=== PATIENT | female | born 1925 | race Caucasian/White ===

== ENCOUNTER 2016-05-19 06:42 | Inpatient (IN) | payer MEDICARE ==
[~2016-05-19 06:42] MED LIST: Acetaminophen SUPP* 120 MG SUPP ONE; Acetaminophen SUPP* 650 MG SUPP ONE
[2016-05-19] MEDS: NS 0.9% 1000 ML* 3,000 ML IV ONE ×2 (06:42→08:25)
[2016-05-19] MEDS ORDERED: NS 0.9% 1000 ML* 1,000 ML IV ONE (06:52)
[2016-05-19] MEDS ORDERED: Ondansetron INJ* 2 MG/ML VIAL IV ONE (06:57)
[2016-05-19] MEDS ORDERED: Levofloxacin 750 MG IVPREMIX(* 750 MG/150 ML BAG IVPB ONE (06:57)
[2016-05-19] MEDS ORDERED: Pantoprazole IV* 80 MG in NS 0.9% 250 ML* 250 ML IVPB ONE (06:57)
--- NOTE | 2016-05-19 07:06 | ED ---
Caden Casas Adam, scribed for Jett Juarez on 05/19/16 at 0654 . Complex/Multi-Sys Presentation - HPI Summary HPI Summary: Pt is an 89 year old female BIBA from [facility] with unresponsiveness, vomiting, and fever. Pt is unable to provide hx because she is unresponsive; hx obtained from EMS. Pt was found to be febrile by nursing staff at 05:55 this morning and she was unresponsive. EMS report a temperature of 104 F en route to ED, as well as coffee grounds emesis. They report BP as 81/ 57. Pt is DNR/DNI. PMHx includes thyroid disease, CHF, HTN, TIA, arthritis, and osteoporosis. - History Of Current Complaint Hx Obtained From: EMS Hx From Patient Unobtainable Due To: Other - Level 5 Caveat due to unresponsive patient Onset/Duration: Gradual Onset, Lasting Minutes, Lasting Hours, Still Present Timing: Constant Severity Currently: Moderate Severity Initially: Moderate Aggravating Factor(s): Nothing Alleviating Factor(s): Nothing Associated Signs And Symptoms: Positive: Decreased Responsiveness, Fever, Other - Coffee grounds emesis - Allergies/Home Medications Allergies/Adverse Reactions: Allergies Allergy/AdvReac Type Severity Reaction Status Date / Time Erythromycin Allergy Unknown Hives Verified 08/07/15 11:00 Penicillins Allergy Unknown Hives Verified 08/07/15 11:00 Sulfa Antibiotics Allergy Unknown Hives Verified 08/07/15 11:00 PMH/Surg Hx/FS Hx/Imm Hx Endocrine/Hematology History: Reports: Hx Thyroid Disease Denies: Hx Diabetes Cardiovascular History: Reports: Hx Congestive Heart Failure, Hx Hypertension Denies: Hx Pacemaker/ICD Comment Only: Other Cardiovascular Problems/Disorders - afib Respiratory History: Reports: Other Respiratory Problems/Disorders - ALLERGIES Denies: Hx Asthma, Hx Chronic Obstructive Pulmonary Disease (COPD) GI History: Denies: Hx Ulcer History: Reports: Other Problems/Disorders - FREQ UTI PER HX Denies: Hx Dialysis, Hx Renal Disease Musculoskeletal History: Reports: Hx Arthritis, Hx Back Problems, Hx Osteoporosis Sensory History: Reports: Hx Contacts or Glasses, Hx Hearing Problem Denies: Hx Hearing Aid Opthamlomology History: Reports: Hx Contacts or Glasses Neurological History: Reports: Hx Transient Ischemic Attacks (TIA) Denies: Hx Dementia, Hx Seizures Psychiatric History: Reports: Hx Anxiety Denies: Hx Panic Disorder - Surgical History Surgery Procedure, Year, and Place: TONSILECTOMY. Rt CARPAL TUNNEL. CATARACTS Infectious Disease History: Denies: Hx Hepatitis, Hx Human Immunodeficiency Virus (HIV) - Family History Known Family History: Positive: Other - CVA - Social History Occupation: Retired Lives: At [employer] Alcohol Use: None Hx Substance Use: No Substance Use Type: Reports: None Hx Tobacco Use: No Smoking Status (MU): Never Smoked Tobacco Review of Systems Positive: Fever Positive: Vomiting All Other Systems Reviewed And Are Negative: No - Comments Additional Review of Systems Comments: Level 5 Caveat due to unresponsive patient Physical Exam Triage Information Reviewed: Yes Vital Signs On Initial Exam: Initial Vitals Temp Pulse Resp BP Pulse Ox 106.0 F 128 40 117/64 97 05/19/16 06:50 05/19/16 06:50 05/19/16 06:50 05/19/16 06:50 05/19/16 06:50 Vital Signs Reviewed: Yes Completion Of Physical Exam Limited Due To: Level 5 - Unresponsive Appearance: Positive: Ill-Appearing Head/Face: Positive: Other - Evidence of emesis Respiratory/Lung Sounds: Positive: Rhonchi Cardiovascular: Positive: Tachycardia Abdomen Description: Positive: Distended - Slightly Neurological: Positive: Other - Unresponsive Psychiatric: Positive: Patient Uncooperative for Exam - Unresponsive Diagnostics - Vital Signs Vital Signs Temp Pulse Resp BP Pulse Ox 05/19/16 06:50 106.0 F 128 40 117/64 97 - Laboratory Lab Statement: Any lab studies that have been ordered have been reviewed, and results considered in the medical decision making process. Complex Multi-Symp Course/Dx - Diagnoses Provider Diagnoses: GI bleed, Sepsis Discharge - Discharge Plan Condition: Stable Disposition: OTHER Discharge Disposition Comment: Signed out to Dr. Carmichael at 07:00 Referrals: Katya Olmos MD [Primary Care Provider] - The documentation as recorded by the Caden turcios Adam accurately reflects the service I personally performed and the decisions made by , Jett Juarez.
[2016-05-19] MEDS ORDERED: Acetaminophen SUPP* 650 MG SUPP PR ONE (07:10)
[2016-05-19] MEDS ORDERED: Cefepime(*) 2 GM in NS 0.9% 50 ML* 50 ML IVPB ONE (07:11)
[2016-05-19 07:13] LABS: Hematocrit 35 % (35-47); Hemoglobin 11.5 g/dl (12.0-16.0); Mean Corpuscular HGB Conc 33 g/dl (31-36); Mean Corpuscular Hemoglobin 29 pg (27-31); Mean Corpuscular Volume 89 fL (80-97); Mean Platelet Volume 8 um3 (7.4-10.4); Red Blood Count 3.92 10^6/ul (4.0-5.4); Red Cell Distribution Width 17 % (10.5-15); White Blood Count 12.8 10^3/ul (3.5-10.8)
[2016-05-19 07:19] LABS: Urine Bacteria Absent (Absent); Urine Bilirubin Negative (Negative); Urine Glucose Negative (Negative); Urine Nitrite Negative (Negative)
--- NOTE | 2016-05-19 07:19 | ED ---
Caden Casas Adam, scribed for Jett Juarez on 05/19/16 at 0719 . Progress - Progress Note Progress Note: Critical care time noted below. Course/Dx - Diagnoses Provider Diagnoses: GI bleed, Sepsis - Critical Care Time Critical Care Time: 30-74 min The documentation as recorded by the antionetteibeCaden Adam accurately reflects the service I personally performed and the decisions made by Ann castillo Emmanuel.
[2016-05-19 07:31] LABS: Ammonia 47 mol/L (16-53)
[2016-05-19] MEDS ORDERED: NS 0.9% 50 ML* 50 ML ONE (07:31)
[2016-05-19 07:32] LABS: Albumin 3.7 g/dL (3.2-5.2); BUN/Creatinine Ratio 12.6 (8-20); C Reactive Protein 63.29 mg/L (< 5.00); Calcium 9.2 mg/dL (8.6-10.3); EGFR African American 27.9 (>60); EGFR Non-African American 21.7 (>60); Globulin 3.8 g/dL (2-4); Magnesium 1.6 mg/dL (1.9-2.7); Potassium 3.7 mmol/L (3.5-5.0); Total Bilirubin 0.4 mg/dL (0.2-1.0); Total Protein 7.5 g/dL (6.4-8.9)
[2016-05-19 07:34] LABS: Troponin I 0.5 ng/mL (<0.04)
[2016-05-19 07:35] LABS: B Type Natriuretic Peptide 367 pg/mL
[2016-05-19] MEDS ORDERED: Pantoprazole IV* 40 MG IV ONE (08:00)
[2016-05-19] MEDS: Pantoprazole IV* 80 MG in NS 0.9% 250 ML* 250 ML IVPB SCH ×3 (08:02→17:16)
--- NOTE | 2016-05-19 08:12 | RAD ---
HISTORY: GI bleeding COMPARISONS: August 07, 2015 VIEWS:1: Single frontal portable view of the chest at 7:29 AM FINDINGS: LINES AND TUBES: None. CARDIOMEDIASTINAL SILHOUETTE: The cardiomediastinal silhouette is normal for portable technique. PLEURA: The costophrenic angles are sharp. No pleural abnormalities are noted. LUNG PARENCHYMA: The lungs are clear. ABDOMEN: The upper abdomen is clear. There is no subphrenic gas. BONES AND SOFT TISSUES: No bone or soft tissue abnormalities are noted. IMPRESSION: NO ACTIVE CARDIOPULMONARY DISEASE.
--- NOTE | 2016-05-19 08:13 | RAD ---
HISTORY: GI bleeding COMPARISONS: None relevant VIEWS: Frontal portable supine views of the abdomen FINDINGS: BOWEL: There is a nonspecific bowel gas pattern, with nondilated small bowel gas noted. There is a moderate amount of stool within the colon. CALCULI: There are no abnormal calculi. BONES AND SOFT TISSUES: Degenerative changes are noted of the spine OTHER FINDINGS: The lung bases are clear. There is no subphrenic gas. IMPRESSION: NONSPECIFIC BOWEL GAS PATTERN. NO APPRECIABLE FREE INTRAPERITONEAL GAS.
--- NOTE | 2016-05-19 08:58 | ADMNOTE ---
Subjective Date of Service: 05/19/16 Interval History: AMISSION HISTORY AND PHYSICAL EXAM: Allergies Allergy/AdvReac Type Severity Reaction Status Date / Time Erythromycin Allergy Unknown Hives Verified 05/19/16 08:10 Penicillins Allergy Unknown Hives Verified 05/19/16 08:10 Sulfa Antibiotics Allergy Unknown Hives Verified 05/19/16 08:10 Home Medications Medication Instructions Recorded Confirmed Type Acetaminophen TAB* [Tylenol TAB*] 650 mg PO Q4H PRN #0 tab 05/25/15 05/19/16 Rx Aspirin EC Low Dose* [Ecotrin EC 81 mg PO DAILY tab.ec 05/25/15 05/19/16 Rx Low Dose 81 MG*] Levothyroxine TAB* [Synthroid TAB*] 50 mcg PO 0600 tab 05/25/15 05/19/16 Rx Acetaminophen SUPP* [Tylenol Supp*] 650 mg IL Q4H PRN 07/16/15 05/19/16 History Cranberry (Vaccinium Macrocarp 425 mg PO DAILY 07/16/15 05/19/16 History [Cranberry] Cyclosporine 0.05% OPHTH (NF) 1 drop BOTH EYES BID 07/16/15 05/19/16 History [Restasis 0.05% OPHTH] Metoprolol Tartrate TAB* 12.5 mg PO BID 05/19/16 05/19/16 History [Lopressor TAB*] HPI: The patient was in her usual state of health until this AM when she had coffee ground emesis. She is unable to give any history due to obtundation, although she can state her name. Family History: Findings - Mother had HTN, father had a CVA. Social History: Findings - Resident of [facility]. No alcohol or tobacco use. 2 children. Tori is her SDM. Past Medical History: Unchanged from Admission - CVA, atrial fib, seizures, HTN , hypothroid, HTN, HL, tonsillectomy, CTR Review of Systems - Measurements Intake and Output: Intake and Output Last 24 Hours 05/17/16 05/18/16 05/19/16 05/20/16 06:59 06:59 06:59 06:59 Intake Total 2071 Output Total 250 Balance 1822 Weight 175 lb Intake: IV Fluids 2071 Output: Residual 250 [place] 18 Fr 250 - Review of Systems General Comments: Not obtainable due to her AMS. Objective Active Medications: Pantoprazole Sodium 80 mg/ (Sodium Chloride) 250 mls @ 25 mls/hr IVPB Q10H CAYDEN Last Admin: 05/19/16 08:02 Dose: 25 mls/hr Sodium Chloride (Ns 0.9% 1000 Ml*) 3,000 mls @ 1,000 mls/hr IV .PER RATE ONE Stop: 05/19/16 11:12 Last Admin: 05/19/16 08:25 Dose: 1,000 mls/hr Vital Signs 05/19/16 05/19/16 05/19/16 06:50 07:01 07:02 Temperature 106.0 F Pulse Rate 128 57 Respiratory 40 33 Rate Blood Pressure 117/64 112/44 (mmHg) O2 Sat by Pulse 97 97 Oximetry 05/19/16 05/19/16 07:30 08:21 Temperature 99.7 F Pulse Rate 91 Respiratory 30 Rate Blood Pressure 83/33 (mmHg) O2 Sat by Pulse 98 Oximetry Oxygen Devices in Use Now: Nasal Cannula Appearance: Lethargic, response is delayed. Noisy respirations. Partly up on ED stretcher. Eyes: No Scleral Icterus Ears/Nose/Mouth/Throat: Clear Oropharnyx, Mucous Membranes Moist Neck: NL Appearance and Movements; NL JVP, No Thyroid Enlargement, Masses Respiratory: Symmetrical Chest Expansion and Respiratory Effort, Clear to Percussion, - - mod rhonchi BL, noisy respirations. Abdominal breathing. Cardiovascular: NL Sounds; No Murmurs; No JVD, RRR, No Edema, - Abdominal: NL Sounds; No Tenderness; No Distention, No Hepatosplenomegaly, - Extremities: No Edema, No Clubbing, Cyanosis, - Skin: No Nodules or Sclerosis, - - Desquamated area L subclavicular area 5 x 8 cm, L face 2 x 3 cm desauqmated area Neurological: NL Sensation - Moves all limbs. Speech dysarthic, sparse. Can say her whole name. Result Diagrams: 05/19/16 06:45 05/19/16 06:45 Additional Lab and Data: Lab Results 05/19/16 05/19/16 05/19/16 Range/Units 06:45 06:45 06:45 WBC 12.8 H (3.5-10.8) 10^3/ul RBC 3.92 L (4.0-5.4) 10^6/ul Hgb 11.5 L (12.0-16.0) g/dl Hct 35 (35-47) % MCV 89 (80-97) fL MCH 29 (27-31) pg MCHC 33 (31-36) g/dl RDW 17 H (10.5-15) % Plt Count 419 (150-450) 10^3/ul MPV 8 (7.4-10.4) um3 Neut % (Auto) 88.8 H (38-83) % Lymph % (Auto) 7.3 L (25-47) % [place] % (Auto) 3.5 (1-9) % Eos % (Auto) 0 (0-6) % Baso % (Auto) 0.4 (0-2) % Absolute Neuts (auto) 11.4 H (1.5-7.7) 10^3/ul Absolute Lymphs (auto) 0.9 L (1.0-4.8) 10^3/ul Absolute Monos (auto) 0.4 (0-0.8) 10^3/ul Absolute Eos (auto) 0 (0-0.6) 10^3/ul Absolute Basos (auto) 0 (0-0.2) 10^3/ul Absolute Nucleated RBC 0.01 10^3/ul Nucleated RBC % 0.1 INR (Anticoag Therapy) 1.37 H (0.89-1.11) APTT 24.1 L (26.0-36.3) seconds Sodium 133 (133-145) mmol/L Potassium 3.7 (3.5-5.0) mmol/L Chloride 97 L (101-111) mmol/L Carbon Dioxide 21 L (22-32) mmol/L Anion Gap 15 H (2-11) mmol/L BUN 27 H (6-24) mg/dL Creatinine 2.14 H (0.51-0.95) mg/dL Est GFR ( Amer) 27.9 (>60) Est GFR (Non-Af Amer) 21.7 (>60) BUN/Creatinine Ratio 12.6 (8-20) Glucose 251 H (70-100) mg/dL Lactic Acid (0.5-2.0) mmol/L Calcium 9.2 (8.6-10.3) mg/dL Magnesium 1.6 L (1.9-2.7) mg/dL Total Bilirubin 0.40 (0.2-1.0) mg/dL AST 19 (13-39) U/L ALT 14 (7-52) U/L Alkaline Phosphatase 68 (34-104) U/L Ammonia (16-53) mol/L Troponin I 0.50 H* (<0.04) ng/mL C-Reactive Protein 63.29 H (< 5.00) mg/L B-Natriuretic Peptide ( - 100) pg/mL Total Protein 7.5 (6.4-8.9) g/dL Albumin 3.7 (3.2-5.2) g/dL Globulin 3.8 (2-4) g/dL Albumin/Globulin Ratio 1.0 (1-3) Lipase 11 (11.0-82.0) U/L Urine Color Urine Appearance Urine pH (5-9) Ur Specific [place] (1.010-1.030) Urine Protein (Negative) Urine Ketones (Negative) Urine Blood (Negative) Urine Nitrate (Negative) Urine Bilirubin (Negative) Urine Urobilinogen (Negative) Ur Leukocyte Esterase (Negative) Urine WBC (Auto) (Absent) Urine RBC (Auto) (Absent) Ur Squamous Epith Cells (Absent) Urine Bacteria (Absent) Urine Glucose (Negative) Blood Type Antibody Screen 05/19/16 05/19/16 05/19/16 Range/Units 06:45 06:45 06:45 WBC (3.5-10.8) 10^3/ul RBC (4.0-5.4) 10^6/ul Hgb (12.0-16.0) g/dl Hct (35-47) % MCV (80-97) fL MCH (27-31) pg MCHC (31-36) g/dl RDW (10.5-15) % Plt Count (150-450) 10^3/ul MPV (7.4-10.4) um3 Neut % (Auto) (38-83) % Lymph % (Auto) (25-47) % [place] % (Auto) (1-9) % Eos % (Auto) (0-6) % Baso % (Auto) (0-2) % Absolute Neuts (auto) (1.5-7.7) 10^3/ul Absolute Lymphs (auto) (1.0-4.8) 10^3/ul Absolute Monos (auto) (0-0.8) 10^3/ul Absolute Eos (auto) (0-0.6) 10^3/ul Absolute Basos (auto) (0-0.2) 10^3/ul Absolute Nucleated RBC 10^3/ul Nucleated RBC % INR (Anticoag Therapy) (0.89-1.11) APTT (26.0-36.3) seconds Sodium (133-145) mmol/L Potassium (3.5-5.0) mmol/L Chloride (101-111) mmol/L Carbon Dioxide (22-32) mmol/L Anion Gap (2-11) mmol/L BUN (6-24) mg/dL Creatinine (0.51-0.95) mg/dL Est GFR ( Amer) (>60) Est GFR (Non-Af Amer) (>60) BUN/Creatinine Ratio (8-20) Glucose (70-100) mg/dL Lactic Acid 5.0 H* (0.5-2.0) mmol/L Calcium (8.6-10.3) mg/dL Magnesium (1.9-2.7) mg/dL Total Bilirubin (0.2-1.0) mg/dL AST (13-39) U/L ALT (7-52) U/L Alkaline Phosphatase (34-104) U/L Ammonia 47 (16-53) mol/L Troponin I (<0.04) ng/mL C-Reactive Protein (< 5.00) mg/L B-Natriuretic Peptide 367 H ( - 100) pg/mL Total Protein (6.4-8.9) g/dL Albumin (3.2-5.2) g/dL Globulin (2-4) g/dL Albumin/Globulin Ratio (1-3) Lipase (11.0-82.0) U/L Urine Color Urine Appearance Urine pH (5-9) Ur Specific [place] (1.010-1.030) Urine Protein (Negative) Urine Ketones (Negative) Urine Blood (Negative) Urine Nitrate (Negative) Urine Bilirubin (Negative) Urine Urobilinogen (Negative) Ur Leukocyte Esterase (Negative) Urine WBC (Auto) (Absent) Urine RBC (Auto) (Absent) Ur Squamous Epith Cells (Absent) Urine Bacteria (Absent) Urine Glucose (Negative) Blood Type O Positive Antibody Screen Pending 05/19/16 Range/Units 07:00 WBC (3.5-10.8) 10^3/ul RBC (4.0-5.4) 10^6/ul Hgb (12.0-16.0) g/dl Hct (35-47) % MCV (80-97) fL MCH (27-31) pg MCHC (31-36) g/dl RDW (10.5-15) % Plt Count (150-450) 10^3/ul MPV (7.4-10.4) um3 Neut % (Auto) (38-83) % Lymph % (Auto) (25-47) % [place] % (Auto) (1-9) % Eos % (Auto) (0-6) % Baso % (Auto) (0-2) % Absolute Neuts (auto) (1.5-7.7) 10^3/ul Absolute Lymphs (auto) (1.0-4.8) 10^3/ul Absolute Monos (auto) (0-0.8) 10^3/ul Absolute Eos (auto) (0-0.6) 10^3/ul Absolute Basos (auto) (0-0.2) 10^3/ul Absolute Nucleated RBC 10^3/ul Nucleated RBC % INR (Anticoag Therapy) (0.89-1.11) APTT (26.0-36.3) seconds Sodium (133-145) mmol/L Potassium (3.5-5.0) mmol/L Chloride (101-111) mmol/L Carbon Dioxide (22-32) mmol/L Anion Gap (2-11) mmol/L BUN (6-24) mg/dL Creatinine (0.51-0.95) mg/dL Est GFR ( Amer) (>60) Est GFR (Non-Af Amer) (>60) BUN/Creatinine Ratio (8-20) Glucose (70-100) mg/dL Lactic Acid (0.5-2.0) mmol/L Calcium (8.6-10.3) mg/dL Magnesium (1.9-2.7) mg/dL Total Bilirubin (0.2-1.0) mg/dL AST (13-39) U/L ALT (7-52) U/L Alkaline Phosphatase (34-104) U/L Ammonia (16-53) mol/L Troponin I (<0.04) ng/mL C-Reactive Protein (< 5.00) mg/L B-Natriuretic Peptide ( - 100) pg/mL Total Protein (6.4-8.9) g/dL Albumin (3.2-5.2) g/dL Globulin (2-4) g/dL Albumin/Globulin Ratio (1-3) Lipase (11.0-82.0) U/L Urine Color Yellow Urine Appearance Cloudy Urine pH 7.0 (5-9) Ur Specific [place] 1.011 (1.010-1.030) Urine Protein 1+(30 mg/dl) H (Negative) Urine Ketones Trace H (Negative) Urine Blood 2+ H (Negative) Urine Nitrate Negative (Negative) Urine Bilirubin Negative (Negative) Urine Urobilinogen Negative (Negative) Ur Leukocyte Esterase 3+ H (Negative) Urine WBC (Auto) 3+(>20/hpf) H (Absent) Urine RBC (Auto) 1+(3-5/hpf) H (Absent) Ur Squamous Epith Cells Present H (Absent) Urine Bacteria Absent (Absent) Urine Glucose Negative (Negative) Blood Type Antibody Screen Microbiology and Other Data: Microbiology 05/19/16 08:00 Influenza Types A,B Antigen (LESTER) - Final Nasal Specimen received for Influenza A/B Molecular testing 05/19/16 06:40 Stool Occult Blood (LESTER) - Final Stool Assess/Plan/Problems-Billing Assessment: - Patient Problems (1) Sepsis Current Visit: Yes Status: Acute Comment: Temp recorded as 106.0 at 06:50, 99.7 at 08:21 WBC 12.8 3/10, lactate 5.0. Continue levofloxacin and cefempime. Repeat lactate 10:00. (2) Seizure Current Visit: No Status: Acute Code(s): R56.9 - UNSPECIFIED CONVULSIONS SNOMED Code(s): 77257250 Comment: Not a definite dx. Not on AED currently. (3) Hypothyroid Current Visit: Yes Status: Acute Code(s): E03.9 - HYPOTHYROIDISM, UNSPECIFIED SNOMED Code(s): 97163693 Comment: IV levothyroxine ordered. (4) Atrial fibrillation Current Visit: No Status: Chronic Priority: Medium Code(s): I48.91 - UNSPECIFIED ATRIAL FIBRILLATION SNOMED Code(s): 30397278 Comment: Staff looking for ECG, will do one if not already done. On ASA only for anticoagulation. (5) CVA (cerebral vascular accident) Current Visit: No Status: Acute Code(s): I63.9 - CEREBRAL INFARCTION, UNSPECIFIED SNOMED Code(s): 815605607 Comment: - MRI brain showed acute right cerebellar CVA. (6) UGI bleed Current Visit: Yes Status: Acute Code(s): K92.2 - GASTROINTESTINAL HEMORRHAGE, UNSPECIFIED SNOMED Code(s): 87377571 Comment: Continue pantoprazole infusion. CBC at 10:00 05/19.
[2016-05-19] MEDS ORDERED: NS 0.9% w/ 20 Meq KCL 1000 ML* 1,000 ML IV SCH (10:00)
[2016-05-19] MEDS ORDERED: Magnesium Sulfate 2 GM IV* 2 GM/50 ML BAG IVPB ONE (13:32)
[2016-05-19] MEDS ORDERED: Heparin VIAL(*) 5000 UNITS/ML VIAL (FIVE THOUSAND) SUBCUT SCH (14:00)
--- NOTE | 2016-05-19 14:45 | ED ---
Andrei Casas Billy, scribed for Reymundo Carmichael MD on 05/19/16 at 0746 . GI/ HPI - HPI Summary HPI Summary: Patient is signed out from Dr. Juarez at shift change. Patient is an 89 year-old female coming to [facility] from [facility] for evaluation of coffee ground emesis. We are unable to is unresponsive at this time in the ED. However, her daughter is in the room to provide history. Daughter states that the patient is prone to UTI and sinus infections. She also reports that the patient had a stroke 1 year ago, but has otherwise been quite healthy prior to that time. Patient is DNR/DNI. - History of Current Complaint Chief Complaint: EDGIBleed Time Seen by Provider: 05/19/16 06:51 Stated Complaint: SEPSIS Hx Obtained From: Family/Environmental Program Manager, EMS Hx From Patient Unobtainable Due To: Other - Level 5 Caveat due to unresponsive patient Onset/Duration: Started Hours Ago Timing: Constant Severity: Moderate Current Severity: Moderate Associated Signs and Symptoms: Positive: Hematemesis, Fever Aggravating Factor(s): Nothing Alleviating Factor(s): Nothing - Additional Pertinent History Primary Care Physician: [id number] - Allergy/Home Medications Allergies/Adverse Reactions: Allergies Allergy/AdvReac Type Severity Reaction Status Date / Time Erythromycin Allergy Unknown Hives Verified 05/19/16 08:10 Penicillins Allergy Unknown Hives Verified 05/19/16 08:10 Sulfa Antibiotics Allergy Unknown Hives Verified 05/19/16 08:10 Home Medications: Home Medications Metoprolol Tartrate TAB* [Lopressor TAB*] 12.5 mg PO BID 05/19/16 [History Confirmed 05/19/16] PMH/Surg Hx/FS Hx/Imm Hx Endocrine/Hematology History: Reports: Hx Thyroid Disease Denies: Hx Diabetes Cardiovascular History: Reports: Hx Congestive Heart Failure, Hx Hypertension Denies: Hx Pacemaker/ICD Comment Only: Other Cardiovascular Problems/Disorders - afib Respiratory History: Reports: Other Respiratory Problems/Disorders - ALLERGIES Denies: Hx Asthma, Hx Chronic Obstructive Pulmonary Disease (COPD) GI History: Denies: Hx Ulcer History: Reports: Other Problems/Disorders - FREQ UTI PER HX Denies: Hx Dialysis, Hx Renal Disease Musculoskeletal History: Reports: Hx Arthritis, Hx Back Problems, Hx Osteoporosis Sensory History: Reports: Hx Contacts or Glasses, Hx Hearing Problem Denies: Hx Hearing Aid Opthamlomology History: Reports: Hx Contacts or Glasses Neurological History: Reports: Hx Transient Ischemic Attacks (TIA) Denies: Hx Dementia, Hx Seizures Psychiatric History: Reports: Hx Anxiety Denies: Hx Panic Disorder - Surgical History Surgery Procedure, Year, and Place: TONSILECTOMY. Rt CARPAL TUNNEL. CATARACTS Infectious Disease History: Yes Infectious Disease History: Denies: Hx Hepatitis, Hx Human Immunodeficiency Virus (HIV), Traveled Outside the [place] in Last 30 Days - Family History Known Family History: Positive: Other - CVA - Social History Occupation: Retired Lives: At [employer] Alcohol Use: None Hx Substance Use: No Substance Use Type: Reports: None Hx Tobacco Use: No Smoking Status (MU): Never Smoked Tobacco Review of Systems Positive: Fever Positive: Vomiting All Other Systems Reviewed And Are Negative: No - Comments Additional Review of Systems Comments: Level 5 Caveat due to unresponsive patient Physical Exam - Summary Physical Exam Summary: The patient is very ill-appearing. The skin is warm and dry and skin color reflects adequate perfusion. HEENT: The head is normocephalic and atraumatic. The pupils are equal and reactive. The conjunctivae are clear and without drainage. Nares are patent and without drainage. Mouth reveals moist mucous membranes and the throat is without erythema and exudate. The external ears are intact. The ear canals are patent and without drainage. The tympanic membranes are intact. Respiratory: Diffuse crackles in lungs bilaterally. Cardiovascular: Heart rate is tachycardic. Abdomen: The abdomen is soft and distended. Musculoskeletal: There is no peripheral edema or calf tenderness elicited. Neurological: Patient is obtunded. Psychiatric: Unable to be obtained from the patient. Triage Information Reviewed: Yes Vital Signs On Initial Exam: Initial Vitals Temp Pulse Resp BP Pulse Ox 106.0 F 128 40 117/64 97 05/19/16 06:50 05/19/16 06:50 05/19/16 06:50 05/19/16 06:50 05/19/16 06:50 Vital Signs Reviewed: Yes Completion Of Physical Exam Limited Due To: Level 5 - Unresponsive - [place] Coma Scale Coma Scale Total: 8 Diagnostics - Vital Signs Vital Signs Temp Pulse Resp BP Pulse Ox 05/19/16 07:30 91 30 83/33 98 05/19/16 07:02 57 33 97 05/19/16 07:01 112/44 05/19/16 06:50 106.0 F 128 40 117/64 97 - Laboratory Lab Results: Lab Results 05/19/16 05/19/16 05/19/16 Range/Units 06:45 06:45 06:45 WBC 12.8 H (3.5-10.8) 10^3/ul RBC 3.92 L (4.0-5.4) 10^6/ul Hgb 11.5 L (12.0-16.0) g/dl Hct 35 (35-47) % MCV 89 (80-97) fL MCH 29 (27-31) pg MCHC 33 (31-36) g/dl RDW 17 H (10.5-15) % Plt Count 419 (150-450) 10^3/ul MPV 8 (7.4-10.4) um3 Neut % (Auto) 88.8 H (38-83) % Lymph % (Auto) 7.3 L (25-47) % Gilmer % (Auto) 3.5 (1-9) % Eos % (Auto) 0 (0-6) % Baso % (Auto) 0.4 (0-2) % Absolute Neuts (auto) 11.4 H (1.5-7.7) 10^3/ul Absolute Lymphs (auto) 0.9 L (1.0-4.8) 10^3/ul Absolute Monos (auto) 0.4 (0-0.8) 10^3/ul Absolute Eos (auto) 0 (0-0.6) 10^3/ul Absolute Basos (auto) 0 (0-0.2) 10^3/ul Absolute Nucleated RBC 0.01 10^3/ul Nucleated RBC % 0.1 INR (Anticoag Therapy) 1.37 H (0.89-1.11) APTT 24.1 L (26.0-36.3) seconds Sodium 133 (133-145) mmol/L Potassium 3.7 (3.5-5.0) mmol/L Chloride 97 L (101-111) mmol/L Carbon Dioxide 21 L (22-32) mmol/L Anion Gap 15 H (2-11) mmol/L BUN 27 H (6-24) mg/dL Creatinine 2.14 H (0.51-0.95) mg/dL Est GFR ( Amer) 27.9 (>60) Est GFR (Non-Af Amer) 21.7 (>60) BUN/Creatinine Ratio 12.6 (8-20) Glucose 251 H (70-100) mg/dL Lactic Acid (0.5-2.0) mmol/L Calcium 9.2 (8.6-10.3) mg/dL Magnesium 1.6 L (1.9-2.7) mg/dL Total Bilirubin 0.40 (0.2-1.0) mg/dL AST 19 (13-39) U/L ALT 14 (7-52) U/L Alkaline Phosphatase 68 (34-104) U/L Ammonia (16-53) mol/L Troponin I 0.50 H* (<0.04) ng/mL C-Reactive Protein 63.29 H (< 5.00) mg/L B-Natriuretic Peptide ( - 100) pg/mL Total Protein 7.5 (6.4-8.9) g/dL Albumin 3.7 (3.2-5.2) g/dL Globulin 3.8 (2-4) g/dL Albumin/Globulin Ratio 1.0 (1-3) Lipase 11 (11.0-82.0) U/L Urine Color Urine Appearance Urine pH (5-9) Ur Specific Alford (1.010-1.030) Urine Protein (Negative) Urine Ketones (Negative) Urine Blood (Negative) Urine Nitrate (Negative) Urine Bilirubin (Negative) Urine Urobilinogen (Negative) Ur Leukocyte Esterase (Negative) Urine WBC (Auto) (Absent) Urine RBC (Auto) (Absent) Ur Squamous Epith Cells (Absent) Urine Bacteria (Absent) Urine Glucose (Negative) Blood Type Antibody Screen 05/19/16 05/19/16 05/19/16 Range/Units 06:45 06:45 06:45 WBC (3.5-10.8) 10^3/ul RBC (4.0-5.4) 10^6/ul Hgb (12.0-16.0) g/dl Hct (35-47) % MCV (80-97) fL MCH (27-31) pg MCHC (31-36) g/dl RDW (10.5-15) % Plt Count (150-450) 10^3/ul MPV (7.4-10.4) um3 Neut % (Auto) (38-83) % Lymph % (Auto) (25-47) % Gilmer % (Auto) (1-9) % Eos % (Auto) (0-6) % Baso % (Auto) (0-2) % Absolute Neuts (auto) (1.5-7.7) 10^3/ul Absolute Lymphs (auto) (1.0-4.8) 10^3/ul Absolute Monos (auto) (0-0.8) 10^3/ul Absolute Eos (auto) (0-0.6) 10^3/ul Absolute Basos (auto) (0-0.2) 10^3/ul Absolute Nucleated RBC 10^3/ul Nucleated RBC % INR (Anticoag Therapy) (0.89-1.11) APTT (26.0-36.3) seconds Sodium (133-145) mmol/L Potassium (3.5-5.0) mmol/L Chloride (101-111) mmol/L Carbon Dioxide (22-32) mmol/L Anion Gap (2-11) mmol/L BUN (6-24) mg/dL Creatinine (0.51-0.95) mg/dL Est GFR ( Amer) (>60) Est GFR (Non-Af Amer) (>60) BUN/Creatinine Ratio (8-20) Glucose (70-100) mg/dL Lactic Acid 5.0 H* (0.5-2.0) mmol/L Calcium (8.6-10.3) mg/dL Magnesium (1.9-2.7) mg/dL Total Bilirubin (0.2-1.0) mg/dL AST (13-39) U/L ALT (7-52) U/L Alkaline Phosphatase (34-104) U/L Ammonia 47 (16-53) mol/L Troponin I (<0.04) ng/mL C-Reactive Protein (< 5.00) mg/L B-Natriuretic Peptide 367 H ( - 100) pg/mL Total Protein (6.4-8.9) g/dL Albumin (3.2-5.2) g/dL Globulin (2-4) g/dL Albumin/Globulin Ratio (1-3) Lipase (11.0-82.0) U/L Urine Color Urine Appearance Urine pH (5-9) Ur Specific Alford (1.010-1.030) Urine Protein (Negative) Urine Ketones (Negative) Urine Blood (Negative) Urine Nitrate (Negative) Urine Bilirubin (Negative) Urine Urobilinogen (Negative) Ur Leukocyte Esterase (Negative) Urine WBC (Auto) (Absent) Urine RBC (Auto) (Absent) Ur Squamous Epith Cells (Absent) Urine Bacteria (Absent) Urine Glucose (Negative) Blood Type O Positive Antibody Screen Pending 05/19/16 Range/Units 07:00 WBC (3.5-10.8) 10^3/ul RBC (4.0-5.4) 10^6/ul Hgb (12.0-16.0) g/dl Hct (35-47) % MCV (80-97) fL MCH (27-31) pg MCHC (31-36) g/dl RDW (10.5-15) % Plt Count (150-450) 10^3/ul MPV (7.4-10.4) um3 Neut % (Auto) (38-83) % Lymph % (Auto) (25-47) % Gilmer % (Auto) (1-9) % Eos % (Auto) (0-6) % Baso % (Auto) (0-2) % Absolute Neuts (auto) (1.5-7.7) 10^3/ul Absolute Lymphs (auto) (1.0-4.8) 10^3/ul Absolute Monos (auto) (0-0.8) 10^3/ul Absolute Eos (auto) (0-0.6) 10^3/ul Absolute Basos (auto) (0-0.2) 10^3/ul Absolute Nucleated RBC 10^3/ul Nucleated RBC % INR (Anticoag Therapy) (0.89-1.11) APTT (26.0-36.3) seconds Sodium (133-145) mmol/L Potassium (3.5-5.0) mmol/L Chloride (101-111) mmol/L Carbon Dioxide (22-32) mmol/L Anion Gap (2-11) mmol/L BUN (6-24) mg/dL Creatinine (0.51-0.95) mg/dL Est GFR ( Amer) (>60) Est GFR (Non-Af Amer) (>60) BUN/Creatinine Ratio (8-20) Glucose (70-100) mg/dL Lactic Acid (0.5-2.0) mmol/L Calcium (8.6-10.3) mg/dL Magnesium (1.9-2.7) mg/dL Total Bilirubin (0.2-1.0) mg/dL AST (13-39) U/L ALT (7-52) U/L Alkaline Phosphatase (34-104) U/L Ammonia (16-53) mol/L Troponin I (<0.04) ng/mL C-Reactive Protein (< 5.00) mg/L B-Natriuretic Peptide ( - 100) pg/mL Total Protein (6.4-8.9) g/dL Albumin (3.2-5.2) g/dL Globulin (2-4) g/dL Albumin/Globulin Ratio (1-3) Lipase (11.0-82.0) U/L Urine Color Yellow Urine Appearance Cloudy Urine pH 7.0 (5-9) Ur Specific Alford 1.011 (1.010-1.030) Urine Protein 1+(30 mg/dl) H (Negative) Urine Ketones Trace H (Negative) Urine Blood 2+ H (Negative) Urine Nitrate Negative (Negative) Urine Bilirubin Negative (Negative) Urine Urobilinogen Negative (Negative) Ur Leukocyte Esterase 3+ H (Negative) Urine WBC (Auto) 3+(>20/hpf) H (Absent) Urine RBC (Auto) 1+(3-5/hpf) H (Absent) Ur Squamous Epith Cells Present H (Absent) Urine Bacteria Absent (Absent) Urine Glucose Negative (Negative) Blood Type Antibody Screen Result Diagrams: 05/19/16 06:45 05/19/16 06:45 Lab Statement: Any lab studies that have been ordered have been reviewed, and results considered in the medical decision making process. - Radiology CXR Xray Interpretation: No Acute Changes Radiology Interpretation Completed By: Radiologist Abd XR Radiology Interpretation Completed By: Radiologist - NONSPECIFIC BOWEL GAS PATTERN. NO APPRECIABLE FREE INTRAPERITONEAL GAS. - EKG 0920 EKG Interpretation: sinus tachycardia 109 bpm, no ST elevation GIGU Course/Dx - Course Assessment/Plan: Patient is signed out from Dr. Juarez at shift change. Patient is an 89 year-old female coming to [facility] from [facility] for evaluation of coffee ground emesis. We are unable to is unresponsive at this time in the ED. However, her daughter is in the room to provide history. Daughter states that the patient is prone to UTI and sinus infections. She also reports that the patient had a stroke 1 year ago, but has otherwise been quite healthy prior to that time. Patient is DNR/DNI. Dr. Juarez requested for me to follow up results and further assessment and plan. Bloodwork shows WBC of 12.8, Hgb of 11.5, and platelets of 419. Patient has a chloride of 97, CO2 of 97, anion gap of 15, BUN of 27, and creatinine of 2.14. Glucose is 251 and lactic acid is 5.0. Troponin is 0.50. CRP is 63.2. BNP is 367. UA shows 3+ WBC and is contaminated. CXR shows no active cardiopulmonary disease. Abd XRay shows nonspecific bowel gas pattern. EKG shows sinus tachycardia [address] elevations. Occult blood is negative. MRSA is negative. In the ED course, patient was given Tylenol , IVF since 106F rectal temp. Patient was also started on cefepime. At this point, I discussed my findings and test results with Dr. Blevins who agreed with management so far and agreed to admit the patient to his services for further workup and management. The patient is hemodynamically stable, alert, but not oriented. She is very obtunded. - Diagnoses Provider Diagnoses: GI bleed, Fever, Acute on chronic renal failure, increased troponin r/o NSTEMI - Physician Notifications Discussed Care Of Patient With: Dr. Blevins (hospitalist) @ 2422: accepts admission. Discharge - Discharge Plan Condition: Stable Disposition: ADMITTED TO [facility] The documentation as recorded by the Andrei turcios Billy accurately reflects the service I personally performed and the decisions made by me, Reymundo Carmichael MD.
--- NOTE | 2016-05-19 16:29 | PN ---
Progress Note - Progress Note Note: Elderly female admitted with possible upper GI bleed and aspiratin pneumonia. The Dx of upper GI bleeding was made on the basis of coffee-ground emesis, which often does not represent blood. Serum Hb was 11.4 on admission, which may be the patient's baseline Hb. There have been no episodes of GI bleeding since admission. Thus, this patient may not have an upper GI bleed. I have ordered a stool assay for occult blood.
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
[2016-05-19] MEDS ORDERED: Pantoprazole IV* 40 MG ONE (17:09)
[2016-05-19] MEDS: Cyclosporine 0.05% OPHTH (NF) 0.4 ML VIAL BOTH EYES SCH (21:41)
[2016-05-20] MEDS: Pantoprazole IV* 80 MG in NS 0.9% 250 ML* 250 ML IVPB SCH ×2 (03:33→13:56)
[2016-05-20 04:58] LABS: Hematocrit 29 % (35-47); Hemoglobin 9.4 g/dl (12.0-16.0); Mean Corpuscular HGB Conc 32 g/dl (31-36); Mean Corpuscular Hemoglobin 29 pg (27-31); Mean Corpuscular Volume 91 fL (80-97); Mean Platelet Volume 8 um3 (7.4-10.4); Red Blood Count 3.22 10^6/ul (4.0-5.4); Red Cell Distribution Width 18 % (10.5-15); White Blood Count 12.5 10^3/ul (3.5-10.8)
[2016-05-20] MEDS: Levothyroxine INJ* 100 MCG/5 ML VIAL IV SCH (05:07)
[2016-05-20 05:08] LABS: BUN/Creatinine Ratio 16.3 (8-20); Calcium 8.4 mg/dL (8.6-10.3); EGFR African American 45.2 (>60); EGFR Non-African American 35.1 (>60); Potassium 3.6 mmol/L (3.5-5.0)
[2016-05-20 07:40] LABS: Magnesium 2.4 mg/dL (1.9-2.7)
[2016-05-20] MEDS: Cefepime(*) 2 GM in NS 0.9% 50 ML* 50 ML IVPB SCH (07:48)
[2016-05-20] MEDS: Cyclosporine 0.05% OPHTH (NF) 0.4 ML VIAL BOTH EYES SCH ×2 (12:47→21:52)
[2016-05-20] MEDS: Mupirocin 2% OINT* TUBE TOPICAL SCH (13:57)
--- NOTE | 2016-05-20 15:12 | PN ---
Critical Care Services: Patient looks much better this AM - Is alert and oriented, and breathing comfortably. Vital Signs: Temp Pulse Resp BP SpO2 FiO2 98.2 F 87 19 126/57 98 30 Physical Exam: Gen:As mentioned Lungs:coarse rhonchi Extremities: No cyanosis. Trace edema. Fluid Balance (Past 24 Hours): 05/20/16 06:59 Intake Total 2063.9 Output Total 510 Balance 1553.9 Weight 156 lb Intake: IV Fluids 1172 ns/meds Medicated IV 591.9 protonix 591.9 Oral 0 Otoole Irrigate Amount 300 Output: Otoole 510 Labs: 05/20/16 05/20/16 05/20/16 04:30 04:30 04:30 WBC 12.5 Hgb 9.4 Hct 29 Plt Count 248 Sodium 139 Potassium 3.6 Chloride 110 Carbon Dioxide 23 Anion Gap 6 BUN 23 Creatinine 1.41 Glucose 93 Lactic Acid 1.0 Magnesium 2.4 Studies: Urine culture: Proteus mirabilis (50-70,000 cfu/mL). One blood culture growing Staph epidermidis (? contaminant) Nutrition: Oral diet. Impression: Neither positive culture may be significant. Plan: D/c levofloxacin (continue cefepime). Wean high-flow nasal O2 when able. Critical Care Time: 35 minutes
[2016-05-20] MEDS ORDERED: Diltiazem IV* 5 MG/ML 5 ML VIAL (for loading dose/IV Push) (25 MG) ONE (21:17)
[2016-05-20] MEDS ORDERED: Diltiazem IV* 5 MG/ML 5 ML VIAL (for loading dose/IV Push) (25 MG) IV PUSH ONE (22:00)
[2016-05-20] MEDS ORDERED: Diltiazem DRIP* 100 MG/100 ML ADDV.BAG IVPB SCH (22:00)
[2016-05-21] MEDS: Levothyroxine INJ* 100 MCG/5 ML VIAL IV SCH (06:34)
[2016-05-21 07:07] LABS: Hematocrit 30 % (35-47); Hemoglobin 9.6 g/dl (12.0-16.0); Mean Corpuscular HGB Conc 32 g/dl (31-36); Mean Corpuscular Hemoglobin 29 pg (27-31); Mean Corpuscular Volume 93 fL (80-97); Red Blood Count 3.26 10^6/ul (4.0-5.4); Red Cell Distribution Width 18 % (10.5-15); White Blood Count 12.5 10^3/ul (3.5-10.8)
[2016-05-21 07:09] LABS: Comments Flag Yes
[2016-05-21 07:40] LABS: BUN/Creatinine Ratio 15.3 (8-20); Calcium 8.7 mg/dL (8.6-10.3); EGFR African American 52.4 (>60); EGFR Non-African American 40.7 (>60)
[2016-05-21] MEDS ORDERED: Levofloxacin 500 MG IVPREMIX(* 500 MG/100 ML BAG IVPB SCH (09:00)
--- NOTE | 2016-05-21 09:19 | RAD ---
Indication: Pneumonia. Single frontal view of the chest performed at 0610 hours was reviewed. Comparison is made with previous exam dated May 19, 2016. Cardiomegaly is noted. Interstitial edema persists. No evidence of alveolar consolidation is noted. No pleural fluid is identified. IMPRESSION: PROBABLE MILD PULMONARY INTERSTITIAL EDEMA IS NOTED.
[2016-05-21 09:21] LABS: Potassium 3.7 mmol/L (3.5-5.0)
[2016-05-21] MEDS ORDERED: Furosemide IV* 10 MG/ML 2 ML VIAL (20 MG) IV ONE (09:36)
[2016-05-21] MEDS: Cyclosporine 0.05% OPHTH (NF) 0.4 ML VIAL BOTH EYES SCH ×2 (09:53→21:01)
[2016-05-21] MEDS: Mupirocin 2% OINT* TUBE TOPICAL SCH (09:53)
[2016-05-21] MEDS: Cefepime(*) 2 GM in NS 0.9% 50 ML* 50 ML IVPB SCH (09:53)
[2016-05-21] MEDS ORDERED: Albuterol 2.5 MG/3 ML NEB.SOL* (0.083%) INH PRN (10:34)
[2016-05-21] MEDS ORDERED: Albuterol 2.5 MG/3 ML NEB.SOL* (0.083%) ONE (10:40)
[2016-05-21] MEDS ORDERED: Diltiazem CD CAP* 240 MG PO SCH (11:00)
[2016-05-21] MEDS: Diltiazem TAB* 60 MG PO SCH ×2 (11:11→20:25)
--- NOTE | 2016-05-21 11:19 | PN ---
Critical Care Services: Developed atrial fibrillation last night, and is on diltiazem drip (5 mg/hr). Has longstanding Hx of AFib. Vital Signs: Temp Pulse Resp BP SpO2 FiO2 99.1 F 95 20 138/54 98 30 Physical Exam: Gen:Alert, oriented, and appeaRS COMFORTABLE Lungs: Coarse rhonchi. Audible (upper airway) wheezes, insp and exp (new finding ) No crackles. Extremities:No cyanosis or edema. Fluid Balance (Past 24 Hours): Net fluid balance + 889 mls past 24 hrs. Net balance + 4 liters over past 48 hrs (!) Labs: 05/21/16 05/21/16 06:00 06:00 WBC 12.5 Hgb 9.6 L Hct 30 L Plt Count 246 Sodium 137 Potassium 3.7 Chloride 108 Carbon Dioxide 22 BUN 19 Creatinine 1.24 Glucose 90 Calcium 8.7 Studies: CXR: Interstitial infiltrates both sides. Consistent with aspiration (chronic) , but could also represent CHF. Nutrition: Oral diet. Impression: 1. The patient's overal clinical condition continues to improve, despite the appearance of atrial fibrillation (which is a chronic and recurrent problem). The Dx of aspiration pneumonia appears tenuous at this point (CXR no longer consistent with aspiration), and urine may be the source of infection.. Plan: 1. Switch from IV to PO diltiazem. If rate control is maintained, can transfer out to telemetry. 2. Continue cefepime for proteus in urine (no sensitivities available). 3. Start bronchodilator treatments (primarily to help clear secretions). 4. IV lasix to achieve fluid balance.
[2016-05-21] MEDS ORDERED: Furosemide IV* 10 MG/ML VIAL (40 MG) ONE (20:20)
[2016-05-21] MEDS: Docusate CAP* 100 MG PO SCH ×2 (20:25→20:38)
[2016-05-22] MEDS: Diltiazem TAB* 60 MG PO SCH ×3 (03:48→20:58)
[2016-05-22] MEDS: Levothyroxine INJ* 100 MCG/5 ML VIAL IV SCH (06:10)
[2016-05-22 07:17] LABS: Hematocrit 30 % (35-47); Hemoglobin 9.6 g/dl (12.0-16.0); Mean Corpuscular HGB Conc 32 g/dl (31-36); Mean Corpuscular Hemoglobin 29 pg (27-31); Mean Corpuscular Volume 90 fL (80-97); Mean Platelet Volume 8 um3 (7.4-10.4); Red Blood Count 3.33 10^6/ul (4.0-5.4); Red Cell Distribution Width 17 % (10.5-15); White Blood Count 13.4 10^3/ul (3.5-10.8)
[2016-05-22] MEDS: Famotidine TAB* 20 MG PO SCH (09:19)
[2016-05-22] MEDS: Mupirocin 2% OINT* TUBE TOPICAL SCH (09:19)
[2016-05-22] MEDS: Docusate CAP* 100 MG PO SCH ×2 (09:20→20:58)
[2016-05-22] MEDS: Cefepime(*) 2 GM in NS 0.9% 50 ML* 50 ML IVPB SCH (09:20)
[2016-05-22] MEDS: Cyclosporine 0.05% OPHTH (NF) 0.4 ML VIAL BOTH EYES SCH ×2 (09:21→21:08)
[2016-05-22] MEDS ORDERED: Furosemide IV* 10 MG/ML VIAL (40 MG) IV ONE ×2 (11:26→20:19)
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
[2016-05-22] MEDS: Metoprolol Tartrate TAB* 25 MG PO SCH (20:58)
[2016-05-23] MEDS: Diltiazem TAB* 60 MG PO SCH ×3 (02:15→18:44)
[2016-05-23 04:58] LABS: Hematocrit 29 % (35-47); Hemoglobin 9.5 g/dl (12.0-16.0); Mean Corpuscular HGB Conc 33 g/dl (31-36); Mean Corpuscular Hemoglobin 29 pg (27-31); Mean Corpuscular Volume 89 fL (80-97); Mean Platelet Volume 8 um3 (7.4-10.4); Red Blood Count 3.22 10^6/ul (4.0-5.4); Red Cell Distribution Width 17 % (10.5-15); White Blood Count 15.3 10^3/ul (3.5-10.8)
[2016-05-23 05:00] LABS: Add Diff/Slide Review? Slide Review Added; Comments Flag Yes
[2016-05-23 05:08] LABS: BUN/Creatinine Ratio 13.3 (8-20); Calcium 8.5 mg/dL (8.6-10.3); EGFR African American 58.3 (>60); EGFR Non-African American 45.3 (>60); Potassium 3.1 mmol/L (3.5-5.0)
[2016-05-23] MEDS: Levothyroxine TAB* 50 MCG TAB PO SCH (05:50)
[2016-05-23] MEDS ORDERED: Acetaminophen TAB* 325 MG PO PRN (06:00)
[2016-05-23] MEDS: cefTRIAXone VIAL(*) 1,000 MG in NS 0.9% 50 ML* 50 ML IVPB SCH (07:50)
[2016-05-23] MEDS: Mupirocin 2% OINT* TUBE TOPICAL SCH (07:54)
[2016-05-23] MEDS: Famotidine TAB* 20 MG PO SCH (07:59)
[2016-05-23] MEDS: Docusate CAP* 100 MG PO SCH ×2 (07:59→20:19)
[2016-05-23] MEDS: Metoprolol Tartrate TAB* 25 MG PO SCH ×2 (07:59→17:48)
[2016-05-23] MEDS: Cyclosporine 0.05% OPHTH (NF) 0.4 ML VIAL BOTH EYES SCH (08:07)
--- NOTE | 2016-05-23 09:02 | RAD ---
INDICATION: Fever. Short of breath COMPARISON: May 21, 2016 TECHNIQUE: An AP portable view obtained at 0035 hours is submitted. FINDINGS: Bones/Soft Tissues: There are no acute bony findings. Cardiomediastinal: The cardiomediastinal silhouette is normal. The interstitium is prominent. There is probably mild interstitial edema Lungs: There are no infiltrates. Pleura: There are no pleural effusions. Other: None IMPRESSION: SUSPECT MILD INTERSTITIAL EDEMA. NO ACUTE FINDINGS.
[2016-05-23] MEDS ORDERED: Artificial Tears* 15 ML BTL BOTH EYES PRN (10:04)
[2016-05-23] MEDS ORDERED: Potassium Chlor TAB* 20 MEQ TAB.ER PO ONE (10:37)
[2016-05-23] MEDS ORDERED: Furosemide IV* 10 MG/ML VIAL (40 MG) IV SLOW PU ONE (11:00)
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
[2016-05-23] MEDS: Potassium Chlor TAB* 20 MEQ TAB.ER PO SCH ×2 (13:40→20:20)
[2016-05-23] MEDS: Heparin VIAL(*) 5000 UNITS/ML VIAL (FIVE THOUSAND) SUBCUT SCH (20:32)
[2016-05-24] MEDS: Diltiazem TAB* 60 MG PO SCH ×3 (03:43→18:39)
[2016-05-24] MEDS: Levothyroxine TAB* 50 MCG TAB PO SCH (05:41)
[2016-05-24] MEDS: Heparin VIAL(*) 5000 UNITS/ML VIAL (FIVE THOUSAND) SUBCUT SCH ×3 (05:41→20:54)
[2016-05-24] MEDS: cefTRIAXone VIAL(*) 1,000 MG in NS 0.9% 50 ML* 50 ML IVPB SCH (08:09)
[2016-05-24] MEDS: Metoprolol Tartrate TAB* 25 MG PO SCH ×2 (08:10→17:05)
[2016-05-24] MEDS: Docusate CAP* 100 MG PO SCH ×2 (08:10→20:42)
[2016-05-24] MEDS: Famotidine TAB* 20 MG PO SCH (08:10)
[2016-05-24] MEDS: Mupirocin 2% OINT* TUBE TOPICAL SCH (08:11)
[2016-05-24] MEDS: Potassium Chlor TAB* 20 MEQ TAB.ER PO SCH ×3 (08:11→20:42)
[2016-05-24 08:36] LABS: Hematocrit 31 % (35-47); Hemoglobin 10.3 g/dl (12.0-16.0); Mean Corpuscular HGB Conc 33 g/dl (31-36); Mean Corpuscular Hemoglobin 30 pg (27-31); Mean Corpuscular Volume 90 fL (80-97); Mean Platelet Volume 8 um3 (7.4-10.4); Red Blood Count 3.48 10^6/ul (4.0-5.4); Red Cell Distribution Width 17 % (10.5-15); White Blood Count 15.3 10^3/ul (3.5-10.8)
[2016-05-24 08:43] LABS: Add Diff/Slide Review? Slide Review Added; Comments Flag Yes
[2016-05-24 08:59] LABS: Calcium 9.1 mg/dL (8.6-10.3); EGFR African American 67.1 (>60); EGFR Non-African American 52.2 (>60); Potassium 3.8 mmol/L (3.5-5.0)
[2016-05-24 10:14] LABS: Eosinophils % 1 % (0-6); Immature Granulocytes 1 % (0-9); Metamyelocytes % 1 % (0-2); Neutrophil % 85 % (38-83)
[2016-05-24 10:18] LABS: Microcytosis 1+
[2016-05-24] MEDS ORDERED: Furosemide IV* 10 MG/ML VIAL (40 MG) IV SLOW PU ONE (12:55)
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
[2016-05-25] MEDS: Diltiazem TAB* 60 MG PO SCH ×3 (04:01→21:30)
[2016-05-25] MEDS: Levothyroxine TAB* 50 MCG TAB PO SCH (05:23)
[2016-05-25] MEDS: Heparin VIAL(*) 5000 UNITS/ML VIAL (FIVE THOUSAND) SUBCUT SCH ×3 (05:24→22:30)
[2016-05-25 06:10] LABS: Hematocrit 29 % (35-47); Hemoglobin 9.4 g/dl (12.0-16.0); Mean Corpuscular HGB Conc 33 g/dl (31-36); Mean Corpuscular Hemoglobin 29 pg (27-31); Mean Corpuscular Volume 89 fL (80-97); Mean Platelet Volume 8 um3 (7.4-10.4); Red Blood Count 3.19 10^6/ul (4.0-5.4); Red Cell Distribution Width 17 % (10.5-15); White Blood Count 15.8 10^3/ul (3.5-10.8)
[2016-05-25 06:12] LABS: Add Diff/Slide Review? Slide Review Added; Comments Flag Yes
[2016-05-25 06:38] LABS: Eosinophils % 1 % (0-6); Immature Granulocytes 2 % (0-9); Myelocytes % 1 % (0-1); Neutrophil % 63 % (38-83); Reactive Lymph % 1 % (0-6)
[2016-05-25 06:39] LABS: RBC Morphology Normal (Normal)
[2016-05-25 08:46] LABS: BUN/Creatinine Ratio 13.9 (8-20); Calcium 8.8 mg/dL (8.6-10.3); EGFR African American 66.4 (>60); EGFR Non-African American 51.6 (>60); Potassium 4.1 mmol/L (3.5-5.0)
[2016-05-25] MEDS: Docusate CAP* 100 MG PO SCH ×2 (08:59→22:03)
[2016-05-25] MEDS: Aspirin Low Dose CHEW TAB* 81 MG PO SCH (08:59)
[2016-05-25] MEDS: Famotidine TAB* 20 MG PO SCH (09:00)
[2016-05-25] MEDS: Potassium Chlor TAB* 20 MEQ TAB.ER PO SCH ×3 (09:00→21:30)
[2016-05-25] MEDS: Metoprolol Tartrate TAB* 25 MG PO SCH ×2 (09:02→21:58)
[2016-05-25] MEDS: Mupirocin 2% OINT* TUBE TOPICAL SCH (09:04)
[2016-05-25] MEDS: cefTRIAXone VIAL(*) 1,000 MG in NS 0.9% 50 ML* 50 ML IVPB SCH (10:52)
[2016-05-25] MEDS: Furosemide IV* 10 MG/ML 2 ML VIAL (20 MG) IV SLOW PU SCH (11:06)
--- NOTE | 2016-05-25 12:40 | ECHO ---
Patient: STEFANI WAYNE [facility] Rec#: [id number] : 1925 Date: 05/25/2016 Age: 89y Height: 152.4 cm / 60.0 in Weight: 72.12 kg / 159.0 lbs Sex: F BSA: 1.69 Room#: [facility] Admit Date#: 05/19/2016 Type: Inpatient Referring: Monik Wong Reading: Devante Philippe MD Guitar Player: Rosa Jama Guitar Player: Angelina Bran RDCS CC: Katya Olmos MD Transthoracic Echocardiogram Indication: CHF BP: 130/65 HR: 76 Rhythm: NSR with PACs Findings History: CVA, A-Fib, seizures, HTN, hypothyroidism, sepsis, recent aspiration pneumonia. Technical Comments: The study is technically limited due to poor apical windows. The study is technically limited due to patient body habitus. Completed at 1227. Left Ventricle: The left ventricular chamber size is normal. Mild concentric left ventricular hypertrophy is observed. There is normal left ventricular systolic function. The estimated ejection fraction is 55-60%. The assessment of diastolic function is non-diagnostic. The patient was unable to perform a Valsalva maneuver. Left Atrium: The left atrium is slightly dilated. Right Ventricle: The right ventricular cavity size is normal. The right ventricular global systolic function is normal. Right Atrium: The right atrial cavity size is normal. Aortic Valve: The aortic valve is trileaflet. There is evidence of aortic sclerosis without stenosis. There is no evidence of aortic regurgitation. There is no evidence of aortic stenosis. Mitral Valve: Moderate mitral annular calcification present. The anterior leaflet of the mitral valve is thickened. Mitral valve posterior leaflet calcification is visualized. There is mild mitral regurgitation. There is no evidence of mitral stenosis. Tricuspid Valve: The tricuspid valve leaflets are normal. There is mild tricuspid regurgitation.Not well visulaized in apical views due to suboptimal imaging. There is evidence that pulmonary hypertension may be underestimated. There is no tricuspid stenosis. Pulmonic Valve: The pulmonic valve appears normal. There is no evidence of pulmonic regurgitation. There is no pulmonic stenosis. Pericardium: There is no significant pericardial effusion. A pericardial fat pad is visualized. Aorta: There is no dilatation of the ascending aorta. The aortic arch is not well visualized. There is no dilation of the aortic root. Pulmonary Artery: The main pulmonary artery appears normal. Venous: The venous system is not well visualized. Conclusions The study is technically limited due to poor apical windows. The study is technically limited due to patient body habitus. Completed at 1227. Mild concentric left ventricular hypertrophy is observed. There is normal left ventricular systolic function. The estimated ejection fraction is 55-60%. Moderate mitral annular calcification present. No significant valvular disease: There is mild mitral regurgitation. There is mild tricuspid regurgitation. Compared to report of study from 07/16/2015 the overall LV systolic function is slightly better (was 50-55%). The mitral regurgitation is now seen. Measurements Name Value Normal Range RVIDd (AP) 2D 2.1 cm (0.9 - 2.6) RVDdMajor (2D) 3.5 cm (2.2 - 4.4) RAd ISD 4CH 4.3 cm (3.4 - 4.9) RA (A4C)W 3.2 cm (2.9 - 4.6) IVSd (2D) 1.2 cm (0.6 - 1) LVPWd (2D) 1.2 cm (0.6 - 1) LVIDd (2D) 4.1 cm (3.6 - 5.4) LVIDs (2D) 2.7 cm - LV FS (2D) 34 % (25 - 45) Aortic Annulus 1.7 cm (1.4 - 2.6) Ao root diameter (2D) 2.4 cm (2.1 - 3.5) Ascending Ao 3.1 cm (2.1 - 3.4) LA dimension (AP) 2D 3.7 cm (2.3 - 3.8) LAd ISD 4CH 4.5 cm (2.9 - 5.3) LA ISD 4CH W 3.2 cm (2.5 - 4.5) Name Value Normal Range LA ESV SP 4CH (A/L) 38 ml - LA ESV SP 2CH (A/L) 84 ml - LA ESV BP (A/L) 62 ml - LA ESV BP (A/L) index 36.92 ml/m2 - LA ESV SP 4CH (MOD) 36 ml - LA ESV SP 2CH (MOD) 79 ml - Name Value Normal Range MV E-wave Vmax 1.1 m/sec - MV deceleration time 165 msec - LV septal e' Vmax 0.09 m/sec - LV lateral e' Vmax 0.09 m/sec - LV E:e' septal ratio 12.22 ratio - LV E:e' lateral ratio 12.22 ratio - Name Value Normal Range AV Vmax 1.42 m/sec - AV VTI 31.39 cm - AV peak gradient 8.15 mmHg - AV mean gradient 4.06 mmHg - LVOT diameter 1.8 cm - LVOT Vmax 0.8 m/sec - LVOT VTI 17 cm - LVOT peak gradient 2.68 mmHg - LVOT mean gradient 1.14 mmHg - Name Value Normal Range TR Vmax 2.23 m/sec - TR peak gradient 20 mmHg - RAP 8 mmHg - RVSP 28 mmHg - Name Value Normal Range PV Vmax 0.6 m/sec - PV peak gradient 1.63 mmHg -
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
[2016-05-26] MEDS: Levothyroxine TAB* 50 MCG TAB PO SCH (04:19)
[2016-05-26] MEDS: Diltiazem TAB* 60 MG PO SCH ×3 (04:19→17:54)
[2016-05-26] MEDS: Heparin VIAL(*) 5000 UNITS/ML VIAL (FIVE THOUSAND) SUBCUT SCH ×3 (05:56→21:28)
[2016-05-26 08:16] LABS: Hematocrit 32 % (35-47); Hemoglobin 10.4 g/dl (12.0-16.0); Mean Corpuscular HGB Conc 32 g/dl (31-36); Mean Corpuscular Hemoglobin 29 pg (27-31); Mean Corpuscular Volume 90 fL (80-97); Mean Platelet Volume 8 um3 (7.4-10.4); Red Blood Count 3.55 10^6/ul (4.0-5.4); Red Cell Distribution Width 17 % (10.5-15); White Blood Count 13.7 10^3/ul (3.5-10.8)
[2016-05-26 08:27] LABS: C Reactive Protein 79.7 mg/L (< 5.00); Calcium 9.1 mg/dL (8.6-10.3); EGFR African American 74.9 (>60); EGFR Non-African American 58.2 (>60)
[2016-05-26 09:04] LABS: Add Diff/Slide Review? Slide Review Added; Comments Flag Yes
[2016-05-26] MEDS: Aspirin Low Dose CHEW TAB* 81 MG PO SCH (09:29)
[2016-05-26] MEDS: Metoprolol Tartrate TAB* 25 MG PO SCH ×2 (09:29→17:54)
[2016-05-26] MEDS: Docusate CAP* 100 MG PO SCH ×2 (09:29→21:25)
[2016-05-26] MEDS: Potassium Chlor TAB* 20 MEQ TAB.ER PO SCH ×3 (09:30→21:25)
[2016-05-26] MEDS: Mupirocin 2% OINT* TUBE TOPICAL SCH (09:30)
[2016-05-26] MEDS: cefTRIAXone VIAL(*) 1,000 MG in NS 0.9% 50 ML* 50 ML IVPB SCH (09:30)
[2016-05-26] MEDS: Famotidine TAB* 20 MG PO SCH (09:30)
[2016-05-26] MEDS: Furosemide IV* 10 MG/ML 2 ML VIAL (20 MG) IV SLOW PU SCH (09:31)
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
[2016-05-27] MEDS: Diltiazem TAB* 60 MG PO SCH ×3 (03:34→17:35)
[2016-05-27] MEDS: Heparin VIAL(*) 5000 UNITS/ML VIAL (FIVE THOUSAND) SUBCUT SCH ×3 (05:55→21:12)
[2016-05-27] MEDS: Levothyroxine TAB* 50 MCG TAB PO SCH (05:56)
[2016-05-27] MEDS: Furosemide IV* 10 MG/ML 2 ML VIAL (20 MG) IV SLOW PU SCH (09:52)
[2016-05-27] MEDS: Docusate CAP* 100 MG PO SCH ×2 (09:57→21:12)
[2016-05-27] MEDS: Aspirin Low Dose CHEW TAB* 81 MG PO SCH (09:57)
[2016-05-27] MEDS: Metoprolol Tartrate TAB* 25 MG PO SCH ×2 (09:58→17:34)
[2016-05-27] MEDS: Famotidine TAB* 20 MG PO SCH (09:58)
[2016-05-27] MEDS: Potassium Chlor TAB* 20 MEQ TAB.ER PO SCH ×3 (09:59→21:12)
[2016-05-27] MEDS: Mupirocin 2% OINT* TUBE TOPICAL SCH (14:41)
--- NOTE | 2016-05-27 16:28 | PN ---
Subjective Date of Service: 05/27/16 Interval History: Ms. Lewis denies complaint today other than feeling tired. She denies chest pain, SOB, nausea, or abdominal pain. Family History: Findings - Mother had HTN, father had a CVA. Social History: Findings - Resident of [facility] [place]. No alcohol or tobacco use. 2 children. Tori is her SDM. Past Medical History: Unchanged from Admission - CVA, atrial fib, seizures, HTN , hypothroid, HTN, HL, tonsillectomy, CTR Objective Active Medications: Acetaminophen (Tylenol Tab*) 650 mg PO Q6H PRN PRN Reason: PAIN/TEMPERATURE Albuterol (Ventolin 2.5 Mg/3 Ml Neb.Jane*) 2.5 mg INH Q6H PRN PRN Reason: SOB/WHEEZING Aspirin (Aspirin Low Dose Tab*) 81 mg PO DAILY [facility] Last Admin: 05/27/16 09:57 Dose: 81 mg Diltiazem HCl (Cardizem Tab*) 60 mg PO Q8H [facility] Last Admin: 05/27/16 09:58 Dose: 60 mg Docusate Sodium (Colace Cap*) 100 mg PO BID [facility] Last Admin: 05/27/16 09:57 Dose: 100 mg Famotidine (Pepcid Tab*) 20 mg PO DAILY [facility] Last Admin: 05/27/16 09:58 Dose: 20 mg Furosemide (Lasix Iv*) 20 mg IV SLOW PU DAILY [facility] Last Admin: 05/27/16 09:52 Dose: 20 mg Heparin Sodium (Porcine) (Heparin Vial(*)) 5,000 units SUBCUT Q8HR [facility] Last Admin: 05/27/16 14:38 Dose: 5,000 units Levothyroxine Sodium (Synthroid Tab*) 50 mcg PO 0600 [facility] Last Admin: 05/27/16 05:56 Dose: 50 mcg Metoprolol Tartrate (Lopressor Tab*) 12.5 mg PO BID WITH MEALS [facility] Last Admin: 05/27/16 09:58 Dose: 12.5 mg Mupirocin (Bactroban 2 % Oint*) 1 applic TOPICAL DAILY [facility] Last Admin: 05/27/16 14:41 Dose: 1 applic Polyvinyl Alcohol (Polyvinyl Alcohol 1.4% Opth*) 2 drop BOTH EYES Q4H PRN PRN Reason: DRY EYES Potassium Chloride (Klor Con Er Tab*) 20 meq PO TID [facility] Last Admin: 05/27/16 14:38 Dose: 20 meq Vital Signs 05/26/16 05/26/16 05/26/16 20:00 21:49 23:32 Temperature 97.3 F Pulse Rate 71 78 Respiratory 16 18 16 Rate Blood Pressure 139/64 (mmHg) O2 Sat by Pulse 96 98 Oximetry 05/27/16 05/27/16 07:36 10:27 Temperature 98.2 F Pulse Rate 72 77 Respiratory 14 16 Rate Blood Pressure 143/67 (mmHg) O2 Sat by Pulse 100 97 Oximetry Oxygen Devices in Use Now: Nasal Cannula Appearance: Elderly female sitting up in bed in NAD Respiratory: Symmetrical Chest Expansion and Respiratory Effort, Clear to Auscultation Cardiovascular: NL Sounds; No Murmurs; No JVD, No Edema Abdominal: NL Sounds; No Tenderness; No Distention Extremities: No Edema Skin: - - Blister to left shoulder and chin continues to heal, scabbed with no erythema or drainage Neurological: Alert and Oriented x 3, NL Muscle Strength and Tone Result Diagrams: 05/26/16 07:31 05/26/16 07:31 Additional Lab and Data: Lab Results 05/19/16 05/19/16 05/19/16 Range/Units 06:45 06:45 06:45 WBC 12.8 H (3.5-10.8) 10^3/ul RBC 3.92 L (4.0-5.4) 10^6/ul Hgb 11.5 L (12.0-16.0) g/dl Hct 35 (35-47) % MCV 89 (80-97) fL MCH 29 (27-31) pg MCHC 33 (31-36) g/dl RDW 17 H (10.5-15) % Plt Count 419 (150-450) 10^3/ul MPV 8 (7.4-10.4) um3 Neut % (Auto) 88.8 H (38-83) % Lymph % (Auto) 7.3 L (25-47) % [place] % (Auto) 3.5 (1-9) % Eos % (Auto) 0 (0-6) % Baso % (Auto) 0.4 (0-2) % Absolute Neuts (auto) 11.4 H (1.5-7.7) 10^3/ul Absolute Lymphs (auto) 0.9 L (1.0-4.8) 10^3/ul Absolute Monos (auto) 0.4 (0-0.8) 10^3/ul Absolute Eos (auto) 0 (0-0.6) 10^3/ul Absolute Basos (auto) 0 (0-0.2) 10^3/ul Absolute Nucleated RBC 0.01 10^3/ul Nucleated RBC % 0.1 INR (Anticoag Therapy) 1.37 H (0.89-1.11) APTT 24.1 L (26.0-36.3) seconds Sodium 133 (133-145) mmol/L Potassium 3.7 (3.5-5.0) mmol/L Chloride 97 L (101-111) mmol/L Carbon Dioxide 21 L (22-32) mmol/L Anion Gap 15 H (2-11) mmol/L BUN 27 H (6-24) mg/dL Creatinine 2.14 H (0.51-0.95) mg/dL Est GFR ( Amer) 27.9 (>60) Est GFR (Non-Af Amer) 21.7 (>60) BUN/Creatinine Ratio 12.6 (8-20) Glucose 251 H (70-100) mg/dL Lactic Acid (0.5-2.0) mmol/L Calcium 9.2 (8.6-10.3) mg/dL Magnesium 1.6 L (1.9-2.7) mg/dL Total Bilirubin 0.40 (0.2-1.0) mg/dL AST 19 (13-39) U/L ALT 14 (7-52) U/L Alkaline Phosphatase 68 (34-104) U/L Ammonia (16-53) mol/L Troponin I 0.50 H* (<0.04) ng/mL C-Reactive Protein 63.29 H (< 5.00) mg/L B-Natriuretic Peptide ( - 100) pg/mL Total Protein 7.5 (6.4-8.9) g/dL Albumin 3.7 (3.2-5.2) g/dL Globulin 3.8 (2-4) g/dL Albumin/Globulin Ratio 1.0 (1-3) Lipase 11 (11.0-82.0) U/L Urine Color Urine Appearance Urine pH (5-9) Ur Specific [place] (1.010-1.030) Urine Protein (Negative) Urine Ketones (Negative) Urine Blood (Negative) Urine Nitrate (Negative) Urine Bilirubin (Negative) Urine Urobilinogen (Negative) Ur Leukocyte Esterase (Negative) Urine WBC (Auto) (Absent) Urine RBC (Auto) (Absent) Ur Squamous Epith Cells (Absent) Urine Bacteria (Absent) Urine Glucose (Negative) Blood Type Antibody Screen 05/19/16 05/19/16 05/19/16 Range/Units 06:45 06:45 06:45 WBC (3.5-10.8) 10^3/ul RBC (4.0-5.4) 10^6/ul Hgb (12.0-16.0) g/dl Hct (35-47) % MCV (80-97) fL MCH (27-31) pg MCHC (31-36) g/dl RDW (10.5-15) % Plt Count (150-450) 10^3/ul MPV (7.4-10.4) um3 Neut % (Auto) (38-83) % Lymph % (Auto) (25-47) % [place] % (Auto) (1-9) % Eos % (Auto) (0-6) % Baso % (Auto) (0-2) % Absolute Neuts (auto) (1.5-7.7) 10^3/ul Absolute Lymphs (auto) (1.0-4.8) 10^3/ul Absolute Monos (auto) (0-0.8) 10^3/ul Absolute Eos (auto) (0-0.6) 10^3/ul Absolute Basos (auto) (0-0.2) 10^3/ul Absolute Nucleated RBC 10^3/ul Nucleated RBC % INR (Anticoag Therapy) (0.89-1.11) APTT (26.0-36.3) seconds Sodium (133-145) mmol/L Potassium (3.5-5.0) mmol/L Chloride (101-111) mmol/L Carbon Dioxide (22-32) mmol/L Anion Gap (2-11) mmol/L BUN (6-24) mg/dL Creatinine (0.51-0.95) mg/dL Est GFR ( Amer) (>60) Est GFR (Non-Af Amer) (>60) BUN/Creatinine Ratio (8-20) Glucose (70-100) mg/dL Lactic Acid 5.0 H* (0.5-2.0) mmol/L Calcium (8.6-10.3) mg/dL Magnesium (1.9-2.7) mg/dL Total Bilirubin (0.2-1.0) mg/dL AST (13-39) U/L ALT (7-52) U/L Alkaline Phosphatase (34-104) U/L Ammonia 47 (16-53) mol/L Troponin I (<0.04) ng/mL C-Reactive Protein (< 5.00) mg/L B-Natriuretic Peptide 367 H ( - 100) pg/mL Total Protein (6.4-8.9) g/dL Albumin (3.2-5.2) g/dL Globulin (2-4) g/dL Albumin/Globulin Ratio (1-3) Lipase (11.0-82.0) U/L Urine Color Urine Appearance Urine pH (5-9) Ur Specific [place] (1.010-1.030) Urine Protein (Negative) Urine Ketones (Negative) Urine Blood (Negative) Urine Nitrate (Negative) Urine Bilirubin (Negative) Urine Urobilinogen (Negative) Ur Leukocyte Esterase (Negative) Urine WBC (Auto) (Absent) Urine RBC (Auto) (Absent) Ur Squamous Epith Cells (Absent) Urine Bacteria (Absent) Urine Glucose (Negative) Blood Type O Positive Antibody Screen Pending 05/19/16 Range/Units 07:00 WBC (3.5-10.8) 10^3/ul RBC (4.0-5.4) 10^6/ul Hgb (12.0-16.0) g/dl Hct (35-47) % MCV (80-97) fL MCH (27-31) pg MCHC (31-36) g/dl RDW (10.5-15) % Plt Count (150-450) 10^3/ul MPV (7.4-10.4) um3 Neut % (Auto) (38-83) % Lymph % (Auto) (25-47) % [place] % (Auto) (1-9) % Eos % (Auto) (0-6) % Baso % (Auto) (0-2) % Absolute Neuts (auto) (1.5-7.7) 10^3/ul Absolute Lymphs (auto) (1.0-4.8) 10^3/ul Absolute Monos (auto) (0-0.8) 10^3/ul Absolute Eos (auto) (0-0.6) 10^3/ul Absolute Basos (auto) (0-0.2) 10^3/ul Absolute Nucleated RBC 10^3/ul Nucleated RBC % INR (Anticoag Therapy) (0.89-1.11) APTT (26.0-36.3) seconds Sodium (133-145) mmol/L Potassium (3.5-5.0) mmol/L Chloride (101-111) mmol/L Carbon Dioxide (22-32) mmol/L Anion Gap (2-11) mmol/L BUN (6-24) mg/dL Creatinine (0.51-0.95) mg/dL Est GFR ( Amer) (>60) Est GFR (Non-Af Amer) (>60) BUN/Creatinine Ratio (8-20) Glucose (70-100) mg/dL Lactic Acid (0.5-2.0) mmol/L Calcium (8.6-10.3) mg/dL Magnesium (1.9-2.7) mg/dL Total Bilirubin (0.2-1.0) mg/dL AST (13-39) U/L ALT (7-52) U/L Alkaline Phosphatase (34-104) U/L Ammonia (16-53) mol/L Troponin I (<0.04) ng/mL C-Reactive Protein (< 5.00) mg/L B-Natriuretic Peptide ( - 100) pg/mL Total Protein (6.4-8.9) g/dL Albumin (3.2-5.2) g/dL Globulin (2-4) g/dL Albumin/Globulin Ratio (1-3) Lipase (11.0-82.0) U/L Urine Color Yellow Urine Appearance Cloudy Urine pH 7.0 (5-9) Ur Specific [place] 1.011 (1.010-1.030) Urine Protein 1+(30 mg/dl) H (Negative) Urine Ketones Trace H (Negative) Urine Blood 2+ H (Negative) Urine Nitrate Negative (Negative) Urine Bilirubin Negative (Negative) Urine Urobilinogen Negative (Negative) Ur Leukocyte Esterase 3+ H (Negative) Urine WBC (Auto) 3+(>20/hpf) H (Absent) Urine RBC (Auto) 1+(3-5/hpf) H (Absent) Ur Squamous Epith Cells Present H (Absent) Urine Bacteria Absent (Absent) Urine Glucose Negative (Negative) Blood Type Antibody Screen Microbiology and Other Data: Microbiology 05/19/16 08:00 Influenza Types A,B Antigen ([facility]) - Final Nasal Specimen received for Influenza A/B Molecular testing 05/19/16 06:40 Stool Occult Blood ([facility]) - Final Stool Assess/Plan/Problems-Billing Assessment: Ms. Lewis is an 89 yo female with a PMH of atrial fib, CVA, seizures, HTN, and hypothyroidism who presented to the ED on 05/19/16 with concern for AMS, coffee-ground emesis, and sepsis. - Patient Problems (1) Altered mental status Comment: Resolved. Note that patient presented similiarly back in August 2015, 48 hour EEG negative at that time and workup negative at that time. It was unclear what was driving these episodes despite extensive workup. EEG results pending. (2) Sepsis Comment: WBC down today. Afebrile. CRP essentially unchanged since admission. Completed course of ceftriaxone for UTI. No other souce of infection identified. Repeat BC, as had multiple contaminants on previous cultures. (3) UTI (urinary tract infection) Current Visit: No Status: Acute Priority: Medium Comment: Urine culture with proteus, sensitive to ceftriaxone, completed 7 day course. (4) Seizure Comment: Question of shaking legs and AMS yesterday. EEG obtained, results pending. Patient alert and oriented now. Not on home antiepileptics routinely. Similiar symptoms noted on prior admissions without evidence of seizure activity. (5) Blisters of multiple sites Comment: Had been suspected secondary to burn, present on arrival. However, no report of burn at [facility]. Skin biopsy to rule out autoimmune or other etiology 05/26/16. Wound care consult appreciated. (6) Acute respiratory failure with hypoxia Comment: Resolved, most likely secondary to aspiration pneumonitis and pulmonary edema. Continue to wean oxygen as patient tolerates, down to 1 L NC today. Continue daily furosemide. Echo shows diastolic dysfunction only. (7) UGI bleed Comment: Suspected upon admission, due to reports of coffee-ground emesis. However, stool occult negative and H/H consistent with previous. (8) Hypothyroid Comment: Continue levothyroxine. (9) Atrial fibrillation Comment: Continue diltiazem and metoprolol with hold parameters. Per record, anticoagulation stopped due to age and mental status. (10) Hypothyroid Comment: Continue Levothyroxine. (11) Essential hypertension Comment: SBP 120s. Continue metoprolol and cardizem. (12) DNR (do not resuscitate) Comment: DNR/DNI. MOLST updated and signed 05/22 (13) DVT prophylaxis Comment: SQ heparin reinitiated, will monitor for s/s bleeding. SCDs Status and Disposition: Inpatient admission. Anticipate LOS >2 days. Discharge planning in progress, with PT/OT. Wean O2 and d/c morris.
[2016-05-28] MEDS: Diltiazem TAB* 60 MG PO SCH ×3 (02:05→18:43)
[2016-05-28] MEDS: Levothyroxine TAB* 50 MCG TAB PO SCH (05:53)
[2016-05-28] MEDS: Heparin VIAL(*) 5000 UNITS/ML VIAL (FIVE THOUSAND) SUBCUT SCH ×3 (05:53→22:16)
[2016-05-28 06:23] LABS: Hematocrit 31 % (35-47); Mean Corpuscular HGB Conc 33 g/dl (31-36); Mean Corpuscular Hemoglobin 29 pg (27-31); Mean Corpuscular Volume 90 fL (80-97); Mean Platelet Volume 8 um3 (7.4-10.4); Red Blood Count 3.45 10^6/ul (4.0-5.4); Red Cell Distribution Width 17 % (10.5-15); White Blood Count 13.4 10^3/ul (3.5-10.8)
[2016-05-28 06:34] LABS: BUN/Creatinine Ratio 11.2 (8-20); C Reactive Protein 57.92 mg/L (< 5.00); Calcium 9.1 mg/dL (8.6-10.3); EGFR African American 76.8 (>60); EGFR Non-African American 59.7 (>60); Potassium 4.5 mmol/L (3.5-5.0)
[2016-05-28] MEDS: Potassium Chlor TAB* 20 MEQ TAB.ER PO SCH (09:39)
[2016-05-28] MEDS: Famotidine TAB* 20 MG PO SCH (09:40)
[2016-05-28] MEDS: Docusate CAP* 100 MG PO SCH ×2 (09:40→19:58)
[2016-05-28] MEDS: Metoprolol Tartrate TAB* 25 MG PO SCH ×2 (09:41→15:46)
[2016-05-28] MEDS: Aspirin Low Dose CHEW TAB* 81 MG PO SCH (09:42)
[2016-05-28] MEDS: Furosemide IV* 10 MG/ML 2 ML VIAL (20 MG) IV SLOW PU SCH (09:57)
[2016-05-28] MEDS: Mupirocin 2% OINT* TUBE TOPICAL SCH (10:04)
--- NOTE | 2016-05-28 11:51 | PN ---
Subjective Date of Service: 05/28/16 Interval History: Ms. Lewis is tired again today but comfortably sitting up in the chair. She denies complaint including chest pain, SOB, nausea, or abdominal pain. Family History: Findings - Mother had HTN, father had a CVA. Social History: Findings - Resident of [facility]. No alcohol or tobacco use. 2 children. Tori is her SDM. Past Medical History: Unchanged from Admission - CVA, atrial fib, seizures, HTN , hypothroid, HTN, HL, tonsillectomy, CTR Objective Active Medications: Acetaminophen (Tylenol Tab*) 650 mg PO Q6H PRN Albuterol (Ventolin 2.5 Mg/3 Ml Neb.Jane*) 2.5 mg INH Q6H PRN Aspirin (Aspirin Low Dose Tab*) 81 mg PO DAILY [facility] Diltiazem HCl (Cardizem Tab*) 60 mg PO Q8H [facility] Docusate Sodium (Colace Cap*) 100 mg PO BID [facility] Famotidine (Pepcid Tab*) 20 mg PO DAILY [facility] Furosemide (Lasix Iv*) 20 mg IV SLOW PU DAILY [facility] Heparin Sodium (Porcine) (Heparin Vial(*)) 5,000 units SUBCUT Q8HR [facility] Levothyroxine Sodium (Synthroid Tab*) 50 mcg PO 0600 [facility] Metoprolol Tartrate (Lopressor Tab*) 12.5 mg PO BID WITH MEALS [facility] Mupirocin (Bactroban 2 % Oint*) 1 applic TOPICAL DAILY [facility] Polyvinyl Alcohol (Polyvinyl Alcohol 1.4% Opth*) 2 drop BOTH EYES Q4H PRN Potassium Chloride (Klor Con Er Tab*) 20 meq PO TID [facility] Vital Signs 05/27/16 05/27/16 05/27/16 15:23 20:00 23:16 Temperature 97.3 F 97.8 F Pulse Rate 72 69 Respiratory 16 16 16 Rate Blood Pressure 124/60 143/62 (mmHg) O2 Sat by Pulse 100 100 Oximetry Oxygen Devices in Use Now: Nasal Cannula Appearance: Female sitting up in chair in NAD Respiratory: Symmetrical Chest Expansion and Respiratory Effort, Clear to Auscultation Cardiovascular: NL Sounds; No Murmurs; No JVD, No Edema Abdominal: NL Sounds; No Tenderness; No Distention Extremities: No Edema Neurological: Alert and Oriented x 3, NL Muscle Strength and Tone Nutrition: Taking PO's Result Diagrams: 05/28/16 05:57 05/28/16 05:57 Additional Lab and Data: Lab Results 05/19/16 05/19/16 05/19/16 Range/Units 06:45 06:45 06:45 WBC 12.8 H (3.5-10.8) 10^3/ul RBC 3.92 L (4.0-5.4) 10^6/ul Hgb 11.5 L (12.0-16.0) g/dl Hct 35 (35-47) % MCV 89 (80-97) fL MCH 29 (27-31) pg MCHC 33 (31-36) g/dl RDW 17 H (10.5-15) % Plt Count 419 (150-450) 10^3/ul MPV 8 (7.4-10.4) um3 Neut % (Auto) 88.8 H (38-83) % Lymph % (Auto) 7.3 L (25-47) % [place] % (Auto) 3.5 (1-9) % Eos % (Auto) 0 (0-6) % Baso % (Auto) 0.4 (0-2) % Absolute Neuts (auto) 11.4 H (1.5-7.7) 10^3/ul Absolute Lymphs (auto) 0.9 L (1.0-4.8) 10^3/ul Absolute Monos (auto) 0.4 (0-0.8) 10^3/ul Absolute Eos (auto) 0 (0-0.6) 10^3/ul Absolute Basos (auto) 0 (0-0.2) 10^3/ul Absolute Nucleated RBC 0.01 10^3/ul Nucleated RBC % 0.1 INR (Anticoag Therapy) 1.37 H (0.89-1.11) APTT 24.1 L (26.0-36.3) seconds Sodium 133 (133-145) mmol/L Potassium 3.7 (3.5-5.0) mmol/L Chloride 97 L (101-111) mmol/L Carbon Dioxide 21 L (22-32) mmol/L Anion Gap 15 H (2-11) mmol/L BUN 27 H (6-24) mg/dL Creatinine 2.14 H (0.51-0.95) mg/dL Est GFR ( Amer) 27.9 (>60) Est GFR (Non-Af Amer) 21.7 (>60) BUN/Creatinine Ratio 12.6 (8-20) Glucose 251 H (70-100) mg/dL Lactic Acid (0.5-2.0) mmol/L Calcium 9.2 (8.6-10.3) mg/dL Magnesium 1.6 L (1.9-2.7) mg/dL Total Bilirubin 0.40 (0.2-1.0) mg/dL AST 19 (13-39) U/L ALT 14 (7-52) U/L Alkaline Phosphatase 68 (34-104) U/L Ammonia (16-53) mol/L Troponin I 0.50 H* (<0.04) ng/mL C-Reactive Protein 63.29 H (< 5.00) mg/L B-Natriuretic Peptide ( - 100) pg/mL Total Protein 7.5 (6.4-8.9) g/dL Albumin 3.7 (3.2-5.2) g/dL Globulin 3.8 (2-4) g/dL Albumin/Globulin Ratio 1.0 (1-3) Lipase 11 (11.0-82.0) U/L Urine Color Urine Appearance Urine pH (5-9) Ur Specific [place] (1.010-1.030) Urine Protein (Negative) Urine Ketones (Negative) Urine Blood (Negative) Urine Nitrate (Negative) Urine Bilirubin (Negative) Urine Urobilinogen (Negative) Ur Leukocyte Esterase (Negative) Urine WBC (Auto) (Absent) Urine RBC (Auto) (Absent) Ur Squamous Epith Cells (Absent) Urine Bacteria (Absent) Urine Glucose (Negative) Blood Type Antibody Screen 05/19/16 05/19/16 05/19/16 Range/Units 06:45 06:45 06:45 WBC (3.5-10.8) 10^3/ul RBC (4.0-5.4) 10^6/ul Hgb (12.0-16.0) g/dl Hct (35-47) % MCV (80-97) fL MCH (27-31) pg MCHC (31-36) g/dl RDW (10.5-15) % Plt Count (150-450) 10^3/ul MPV (7.4-10.4) um3 Neut % (Auto) (38-83) % Lymph % (Auto) (25-47) % [place] % (Auto) (1-9) % Eos % (Auto) (0-6) % Baso % (Auto) (0-2) % Absolute Neuts (auto) (1.5-7.7) 10^3/ul Absolute Lymphs (auto) (1.0-4.8) 10^3/ul Absolute Monos (auto) (0-0.8) 10^3/ul Absolute Eos (auto) (0-0.6) 10^3/ul Absolute Basos (auto) (0-0.2) 10^3/ul Absolute Nucleated RBC 10^3/ul Nucleated RBC % INR (Anticoag Therapy) (0.89-1.11) APTT (26.0-36.3) seconds Sodium (133-145) mmol/L Potassium (3.5-5.0) mmol/L Chloride (101-111) mmol/L Carbon Dioxide (22-32) mmol/L Anion Gap (2-11) mmol/L BUN (6-24) mg/dL Creatinine (0.51-0.95) mg/dL Est GFR ( Amer) (>60) Est GFR (Non-Af Amer) (>60) BUN/Creatinine Ratio (8-20) Glucose (70-100) mg/dL Lactic Acid 5.0 H* (0.5-2.0) mmol/L Calcium (8.6-10.3) mg/dL Magnesium (1.9-2.7) mg/dL Total Bilirubin (0.2-1.0) mg/dL AST (13-39) U/L ALT (7-52) U/L Alkaline Phosphatase (34-104) U/L Ammonia 47 (16-53) mol/L Troponin I (<0.04) ng/mL C-Reactive Protein (< 5.00) mg/L B-Natriuretic Peptide 367 H ( - 100) pg/mL Total Protein (6.4-8.9) g/dL Albumin (3.2-5.2) g/dL Globulin (2-4) g/dL Albumin/Globulin Ratio (1-3) Lipase (11.0-82.0) U/L Urine Color Urine Appearance Urine pH (5-9) Ur Specific [place] (1.010-1.030) Urine Protein (Negative) Urine Ketones (Negative) Urine Blood (Negative) Urine Nitrate (Negative) Urine Bilirubin (Negative) Urine Urobilinogen (Negative) Ur Leukocyte Esterase (Negative) Urine WBC (Auto) (Absent) Urine RBC (Auto) (Absent) Ur Squamous Epith Cells (Absent) Urine Bacteria (Absent) Urine Glucose (Negative) Blood Type O Positive Antibody Screen Pending 05/19/16 Range/Units 07:00 WBC (3.5-10.8) 10^3/ul RBC (4.0-5.4) 10^6/ul Hgb (12.0-16.0) g/dl Hct (35-47) % MCV (80-97) fL MCH (27-31) pg MCHC (31-36) g/dl RDW (10.5-15) % Plt Count (150-450) 10^3/ul MPV (7.4-10.4) um3 Neut % (Auto) (38-83) % Lymph % (Auto) (25-47) % [place] % (Auto) (1-9) % Eos % (Auto) (0-6) % Baso % (Auto) (0-2) % Absolute Neuts (auto) (1.5-7.7) 10^3/ul Absolute Lymphs (auto) (1.0-4.8) 10^3/ul Absolute Monos (auto) (0-0.8) 10^3/ul Absolute Eos (auto) (0-0.6) 10^3/ul Absolute Basos (auto) (0-0.2) 10^3/ul Absolute Nucleated RBC 10^3/ul Nucleated RBC % INR (Anticoag Therapy) (0.89-1.11) APTT (26.0-36.3) seconds Sodium (133-145) mmol/L Potassium (3.5-5.0) mmol/L Chloride (101-111) mmol/L Carbon Dioxide (22-32) mmol/L Anion Gap (2-11) mmol/L BUN (6-24) mg/dL Creatinine (0.51-0.95) mg/dL Est GFR ( Amer) (>60) Est GFR (Non-Af Amer) (>60) BUN/Creatinine Ratio (8-20) Glucose (70-100) mg/dL Lactic Acid (0.5-2.0) mmol/L Calcium (8.6-10.3) mg/dL Magnesium (1.9-2.7) mg/dL Total Bilirubin (0.2-1.0) mg/dL AST (13-39) U/L ALT (7-52) U/L Alkaline Phosphatase (34-104) U/L Ammonia (16-53) mol/L Troponin I (<0.04) ng/mL C-Reactive Protein (< 5.00) mg/L B-Natriuretic Peptide ( - 100) pg/mL Total Protein (6.4-8.9) g/dL Albumin (3.2-5.2) g/dL Globulin (2-4) g/dL Albumin/Globulin Ratio (1-3) Lipase (11.0-82.0) U/L Urine Color Yellow Urine Appearance Cloudy Urine pH 7.0 (5-9) Ur Specific [place] 1.011 (1.010-1.030) Urine Protein 1+(30 mg/dl) H (Negative) Urine Ketones Trace H (Negative) Urine Blood 2+ H (Negative) Urine Nitrate Negative (Negative) Urine Bilirubin Negative (Negative) Urine Urobilinogen Negative (Negative) Ur Leukocyte Esterase 3+ H (Negative) Urine WBC (Auto) 3+(>20/hpf) H (Absent) Urine RBC (Auto) 1+(3-5/hpf) H (Absent) Ur Squamous Epith Cells Present H (Absent) Urine Bacteria Absent (Absent) Urine Glucose Negative (Negative) Blood Type Antibody Screen Microbiology and Other Data: Microbiology 05/19/16 08:00 Influenza Types A,B Antigen ([facility]) - Final Nasal Specimen received for Influenza A/B Molecular testing 05/19/16 06:40 Stool Occult Blood ([facility]) - Final Stool Assess/Plan/Problems-Billing Assessment: Ms. Lewis is an 89 yo female with a PMH of atrial fib, CVA, seizures, HTN, and hypothyroidism who presented to the ED on 05/19/16 with concern for AMS, coffee-ground emesis, and sepsis. - Patient Problems (1) Altered mental status Comment: Resolved. Note that patient presented similiarly back in August 2015, 48 hour EEG negative at that time and workup negative at that time. It was unclear what was driving these episodes despite extensive workup. EEG results pending. (2) Sepsis Comment: WBC down today. Afebrile. CRP essentially unchanged since admission. Completed course of ceftriaxone for UTI. No other souce of infection identified. Repeat BC negative. (3) UTI (urinary tract infection) Current Visit: No Status: Acute Priority: Medium Comment: Urine culture with proteus, sensitive to ceftriaxone, completed 7 day course. (4) Seizure Comment: Question of shaking legs and AMS x 1. EEG obtained, results pending. Patient alert and oriented now. Not on home antiepileptics routinely. Similiar symptoms noted on prior admissions without evidence of seizure activity. (5) Blisters of multiple sites Comment: Continue to suspect burn, present on arrival. However, no report of burn at [facility] despite investigation by family. Skin biopsy to rule out autoimmune or other etiology 05/26/16. Wound care consult appreciated. (6) Acute respiratory failure with hypoxia Comment: Resolved, most likely secondary to aspiration pneumonitis and pulmonary edema. Continue to wean oxygen as patient tolerates, down to 1 L NC today. Continue daily furosemide. Echo shows diastolic dysfunction only. (7) UGI bleed Comment: Suspected upon admission, due to reports of coffee-ground emesis. However, stool occult negative and H/H consistent with previous. (8) Hypothyroid Comment: Continue levothyroxine. (9) Atrial fibrillation Comment: Continue diltiazem and metoprolol with hold parameters. Per record, anticoagulation stopped due to age and mental status. (10) Hypothyroid Comment: Continue Levothyroxine. (11) Essential hypertension Comment: SBP 120s. Continue metoprolol and cardizem. (12) DNR (do not resuscitate) Comment: DNR/DNI. MOLST updated and signed 05/22 (13) DVT prophylaxis Comment: SQ heparin reinitiated, will monitor for s/s bleeding. SCDs Status and Disposition: Inpatient admission. Anticipate LOS >2 days. Discharge planning in progress, with PT/OT. Wean O2 and d/c morris.
[2016-05-28 16:35] LABS: Calcium 9.3 mg/dL (8.6-10.3); EGFR African American 67.1 (>60); EGFR Non-African American 52.2 (>60); Potassium 4.7 mmol/L (3.5-5.0)
[2016-05-29] MEDS: Diltiazem TAB* 60 MG PO SCH ×3 (03:15→18:21)
--- NOTE | 2016-05-29 03:40 | EEG ---
ELECTROENCEPHALOGRAPHY: DATE OF STUDY: DATE OF DICTATION: 05/26/16 - ROOM #416 HISTORY: This is an 89-year-old woman being evaluated for seizures with some leg shaking noted. She has also had decreased responsiveness. MEDICATIONS: Include: 1. Lopressor. 2. Cardizem. 3. Colace. 4. Klor-Con. 5. Heparin. 6. Synthroid. 7. Aspirin. 8. Pepcid. 9. Lasix. 10. Bactroban. 11. Tylenol. 12. Ventolin. 13. Eye drops. INTERPRETATION: With the patient awake, background cerebral activity consists of moderate amplitude 5-6 Hz rhythm with diffuse admixed delta activity at times. There is an episode of leg twitching at 1421 during the tracing, but there is no change in cerebral background and other 2 episodes of leg shaking, also not associated with change in background. The patient never falls fully asleep, but at times is not responding to simple commands such as opening eyes, ____ with deep coughing and appearing with an awake rhythm on EEG. No epileptiform potentials, focal abnormalities or major asymmetries of background are noted. IMPRESSION: This EEG is abnormal because of diffuse slowing of background consistent with an encephalopathy but not specific as to etiology. Of note, there were a few episodes of leg shaking and leg twitching during this recording and these episodes were not associated with any underlying epileptiform potentials or change in background. [id number]/[facility] #: [id number] MELISSA
[2016-05-29] MEDS: Levothyroxine TAB* 50 MCG TAB PO SCH (05:08)
[2016-05-29] MEDS: Heparin VIAL(*) 5000 UNITS/ML VIAL (FIVE THOUSAND) SUBCUT SCH ×3 (05:08→22:14)
[2016-05-29 07:16] LABS: BUN/Creatinine Ratio 12.4 (8-20); Calcium 9.2 mg/dL (8.6-10.3); EGFR African American 58.3 (>60); EGFR Non-African American 45.3 (>60); Potassium 4.5 mmol/L (3.5-5.0)
[2016-05-29] MEDS: Aspirin EC Low Dose* 81 MG TAB.EC PO SCH (09:18)
[2016-05-29] MEDS: Famotidine TAB* 20 MG PO SCH (09:18)
[2016-05-29] MEDS: Docusate CAP* 100 MG PO SCH ×2 (09:18→22:14)
[2016-05-29] MEDS: Metoprolol Tartrate TAB* 25 MG PO SCH ×2 (09:18→18:21)
[2016-05-29] MEDS: Mupirocin 2% OINT* TUBE TOPICAL SCH (09:24)
[2016-05-29] MEDS ORDERED: NS 0.9% 500 ML BAG* 500 ML IV ONE (11:17)
[2016-05-29] MEDS ORDERED: NS 0.9% 1000 ML* 1,000 ML IV SCH (11:30)
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
[2016-05-29 17:16] LABS: BUN/Creatinine Ratio 13.1 (8-20); Calcium 9.2 mg/dL (8.6-10.3); EGFR African American 62.1 (>60); EGFR Non-African American 48.3 (>60); Potassium 4.7 mmol/L (3.5-5.0)
[2016-05-30] MEDS: Diltiazem TAB* 60 MG PO SCH ×2 (04:09→10:43)
[2016-05-30] MEDS: Heparin VIAL(*) 5000 UNITS/ML VIAL (FIVE THOUSAND) SUBCUT SCH (06:32)
[2016-05-30] MEDS: Levothyroxine TAB* 50 MCG TAB PO SCH (06:33)
[2016-05-30 07:52] VITALS: BP 130/58
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
[2016-05-30] MEDS: Metoprolol Tartrate TAB* 25 MG PO SCH (10:36)
[2016-05-30] MEDS: Aspirin EC Low Dose* 81 MG TAB.EC PO SCH (10:43)
[2016-05-30] MEDS: Docusate CAP* 100 MG PO SCH (10:43)
[2016-05-30] MEDS: Famotidine TAB* 20 MG PO SCH (10:43)
[2016-05-30] MEDS: Mupirocin 2% OINT* TUBE TOPICAL SCH (10:45)
== END 2016-05-30 13:15 | DRG 871 ==
LOC: ED 06:42 → ICU 07:54 → MEDTELE 05-22 04:11 → MED 05-25 18:43
PROVIDERS: ADMIT Internal Medicine; ATTEND Hospitalist
PROC: 0HB5XZX Excision of Chest Skin, External Approach, Diagnostic (ICD-10-PCS; principal; 2016-05-26)
PROC: 4A00X4Z Measurement of Central Nervous Electrical Activity, External Approach (ICD-10-PCS; 2016-05-26)
DX: A41.9 Sepsis, unspecified organism (principal); J69.0 Pneumonitis due to inhalation of food and vomit; J96.01 Acute respiratory failure with hypoxia; N17.9 Acute kidney failure, unspecified; N39.0 Urinary tract infection, site not specified; I50.9 Heart failure, unspecified; I11.0 Hypertensive heart disease with heart failure; I48.91 Unspecified atrial fibrillation; E86.0 Dehydration; E87.1 Hypo-osmolality and hyponatremia; G40.909 Epilepsy, unspecified, not intractable, without status epilepticus; E78.5 Hyperlipidemia, unspecified; E03.9 Hypothyroidism, unspecified; B96.4 Proteus (mirabilis) (morganii) as the cause of diseases classified elsewhere; Z66 Do not resuscitate; M19.90 Unspecified osteoarthritis, unspecified site; F41.9 Anxiety disorder, unspecified; R40.2432 Glasgow coma scale score 3-8, at arrival to emergency department; M81.0 Age-related osteoporosis without current pathological fracture; T22.252A Burn of second degree of left shoulder, initial encounter; T20.23XA Burn of second degree of chin, initial encounter; X08.8XXA Exposure to other specified smoke, fire and flames, initial encounter; E87.5 Hyperkalemia; Z86.73 Personal history of transient ischemic attack (TIA), and cerebral infarction without residual deficits; Z87.440 Personal history of urinary (tract) infections; Z79.82 Long term (current) use of aspirin; Z88.0 Allergy status to penicillin; Z88.1 Allergy status to other antibiotic agents; Z88.2 Allergy status to sulfonamides; Z82.3 Family history of stroke; Z98.49 Cataract extraction status, unspecified eye; Z82.49 Family history of ischemic heart disease and other diseases of the circulatory system; Y92.9 Unspecified place or not applicable; Z97.4 Presence of external hearing-aid
CPT/HCPCS: 11100; 11101; 36415; 71010; 74000; 80048; 80053; 81003; 81015; 82140; 82272; 83605; 83690; 83735; 83880; 84484; 85025; 85027; 85610; 85730; 86140; 86850; 86900; 86901; 87040; 87077; 87086; 87150; 87184; 87186; 87205; 87502; 87641; 88305; 88346; 88350; 93005; 93306; 94640; 94760; 95819; A9270-GY; J0692; J0696; J1644; J1940; J1956; J2405